=== PATIENT | female | born 1985 | race Caucasian/White ===

== ENCOUNTER 2017-04-15 11:07 | Inpatient (IN) | payer OTHER ==
[2017-04-15 12:18] VITALS: BMI 21.6
--- NOTE | 2017-04-15 14:37 | HP ---
COWS - Scale Resting Pulse: 1= [place] 81-100 Sweatin= Chills/Flushing Restless Observation: 3= Extraneous Movement Pupil Size: 2= Moderately Dilated Bone or Joint Aches: 4=Acute Joint/Muscle Pain Runny Nose/ Eye Tearin= Nasal Congestion GI Upset > 30mins: 1= Stomach Cramp Tremor Observation: 1= Tremor [place], Not Seen Yawning Observation: 0= None Anxiety or Irritability: 2=Irritable/Anxious Goose Flesh Skin: 0=Smooth Skin COWS Score: 16 CIWA Score - CIWA Score Nausea/Vomitin Muscle Tremors: 3 Anxiety: 4-Mod. Anxious/Guarded Agitation: 4-Moderately Restless Paroxysmal Sweats: 1-Minimal Palms Moist Orientation: 0-Oriented Tacttile Disturbances: 3-Moderate Itch/Numb/Burn Auditory Disturbances: 0-None Visual Disturbances: 0-None Headache: 0-None Present CIWA-Ar Total Score: 17 Admission ROS BHS - HPI Chief Complaint: WITHDRAWAL SX Allergies/Adverse Reactions: Allergies Allergy/AdvReac Type Severity Reaction Status Date / Time No Known Allergies Allergy Verified 04/15/17 12:23 History of Present Illness: 31 Y/O FEMALE WITH A HX OF ALCOHOL AND HEROIN DEPENDENCE SEEKING DETOX [place]. Exam Limitations: No Limitations - Ebola screening Have you traveled outside of the country in the last 21 days: No Have you had contact with anyone from an Ebola affected area: No Have you been sick,other than usual withdrawal symptoms: No Do you have a fever: No - Review of Systems Constitutional: Chills, Loss of Appetite, Night Sweats, Changes in sleep, Unintentional Wgt. Loss EENT: reports: Blurred Vision (WEARS CONTACTS) Respiratory: reports: No Symptoms reported Cardiac: reports: No Symptoms Reported GI: reports: Constipated (OIC), Diarrhea, Nausea, Poor Appetite, Poor Fluid Intake, Vomiting : reports: No Symptoms Reported Musculoskeletal: reports: Back Pain, Joint Pain, Muscle Pain Integumentary: reports: Bruising (IVD INJ SITES) Neuro: reports: Headache, Numbness (RIGHT HAND), Tremors, Unsteady Gait Endocrine: reports: No Symptoms Reported Hematology: reports: No Symptoms Reported Psychiatric: reports: Orientated x3, Anxious, Depressed Other Systems: Reviewed and Negative Patient History - Patient Medical History Hx Anemia: No Hx Asthma: No Hx Chronic Obstructive Pulmonary Disease (COPD): No Hx Cancer: No Hx Cardiac Disorders: No Hx Congestive Heart Failure: No Hx Hypertension: No Hx Hypercholesterolemia: No Hx Pacemaker: No HX Cerebrovascular Accident: No Hx Seizures: No Hx Dementia: No Hx Diabetes: No Hx Gastrointestinal Disorders: No Hx Liver Disease: No Hx Genitourinary Disorders: No Hx Sexually Transmitted Disorders: No (DENIES) Hx Renal Disease (ESRD): No Hx Thyroid Disease: No Hx Human Immunodeficiency Virus (HIV): No (NEGATIVE HX) Hx Hepatitis C: No Hx Depression: Yes (NOT CURRENTLY TAKING MEDS) Hx Suicide Attempt: Yes (Pt states she tried to overdose in 2016;DENIES CURRENT S/I) Hx Bipolar Disorder: No (HX PTSD) Hx Schizophrenia: No - Patient Surgical History Past Surgical History: No Hx Neurologic Surgery: No Hx Cataract Extraction: No Hx Cardiac Surgery: No Hx Lung Surgery: No Hx Breast Surgery: No Hx Breast Biopsy: No Hx Abdominal Surgery: No Hx Appendectomy: No Hx Cholecystectomy: No Hx Genitourinary Surgery: No Hx Orthopedic Surgery: No Anesthesia Reaction: No - PPD History Previous Implant?: Yes Documented Results: Negative w/o proof Implanted On Prior R Admission?: No Date: 12/31/14 Results: 0 mm PPD to be Administered?: Yes - Reproductive History Patient is a Female of Child Bearing Age (11 -55 yrs old): Yes Last Menstrual Period: 02/14/17 LMP comment: IRREGULAR Patient : No - Smoking Cessation Smoking history: Current every day smoker Have you smoked in the past 12 months: Yes Aproximately how many cigarettes per day: 6 Hx Chewing Tobacco Use: No Initiated information on smoking cessation: Yes 'Breaking Loose' booklet given: 04/15/17 - Substance & Tx. History Hx Alcohol Use: Yes (VODKA/GIN/BEER) Hx Substance Use: Yes (HEROIN/COCAINE) Substance Use Type: Alcohol, Cocaine, Heroin Hx Substance Use Treatment: Yes (LAST TX AT [facility] DETOX) - Substances Abused Heroin Route: Injection Frequency: Daily Amount used: 10-15 BAGS Age of first use: 28 Date of Last Use: 04/15/17 Cocaine Route: Inhalation Frequency: Daily Amount used: 1 gram Age of first use: 31 Date of Last Use: 04/14/17 Alcohol Route: Oral Frequency: 3-6 times per week Amount used: 1/2 pint Age of first use: 15 Date of Last Use: 04/13/17 Family Disease History - Family Disease History Family Disease History: Other: Father (ALCOHOLIC) Admission Physical Exam [facility] - Vital Signs Vital Signs: Vital Signs - 24 hr 04/15/17 11:52 Temperature 95.9 F L Pulse Rate 97 H Respiratory 20 Rate Blood Pressure 124/71 - Physical General Appearance: Yes: Moderate Distress, Irritable, Anxious HEENTM: Yes: EOMI, Normocephalic, ZAIRE, Pharynx Normal Respiratory: Yes: Chest Non-Tender, Lungs Clear, Normal Breath Sounds, No Respiratory Distress Neck: Yes: No masses,lesions,Nodules, Supple, Trachea in good position Breast: Yes: Breast Exam Deferred Cardiology: Yes: Regular Rhythm, Regular Rate, S1, S2 Abdominal: Yes: Normal Bowel Sounds, Non Tender, Flat Genitourinary: Yes: Other (N/C) Back: Yes: Within Normal Limits Musculoskeletal: Yes: full range of Motion, Gait Steady Extremities: Yes: Normal Range of Motion, Non-Tender Neurological: Yes: ledger poster II-XII NML intact, Fully Oriented, Alert, Motor Strength 5/5 Integumentary: Yes: Dry, Warm, Track [place] Lymphatic: Yes: Within Normal Limits - Diagnostic (1) Nicotine dependence Current Visit: Yes Status: Acute Qualifiers: Nicotine product type: cigarettes Substance use status: in withdrawal Qualified Code(s): F17.213 - Nicotine dependence, cigarettes, with withdrawal (2) Opioid dependence with withdrawal Current Visit: Yes Status: Acute (3) Alcohol dependence with uncomplicated withdrawal Current Visit: Yes Status: Acute (4) History of depression Current Visit: Yes Status: Chronic Cleared for Admission [facility] - Detox or Rehab [facility] Level of Care: Medically Managed Detox Regimen/Protocol: Methadone/Librium [facility] Breath Alcohol Content Breath Alcohol Content: 0 Urine Pregancy Test - Result Urine Test Results: Negative- NO Line Present Urine Drug Screen - Results Drug Screen Negative: No Urine Drug Screen Results: SAE-Cocaine, OPI-Opiates, TCA-Tricyclic Antidepress
[2017-04-15] MEDS ORDERED: ACETAMINOPHEN 325 MG TABLET (FP) PO PRN (14:56)
[2017-04-15] MEDS ORDERED: guaiFENesin/D-METHORPHAN HB 10 ML UNIT-DOSE CUPS PO PRN (14:56)
[2017-04-15] MEDS ORDERED: MAG HYDROX/AL HYDROX/SIMETH 30 ML UNIT-DOSE CUP PO PRN (14:56)
[2017-04-15] MEDS ORDERED: NICOTINE POLACRILEX 2 MG GUM BC PRN (14:56)
[2017-04-15] MEDS ORDERED: LOPERAMIDE HCL 2 MG CAPSULE PO PRN (14:56)
[2017-04-15] MEDS ORDERED: MENTHOL/PHENOL 1 EACH UD MM PRN (14:56)
[2017-04-15] MEDS ORDERED: P-EPHED 60MG/TRIPROLIDI 2.5MG TABLET PO PRN (14:56)
[2017-04-15] MEDS ORDERED: MAGNESIUM HYDROX 2400MG/30ML ORAL SUSPENSION 30 ML CUP PO PRN (14:56)
[2017-04-15] MEDS ORDERED: chlordiazePOXIDE HCL 25 MG CAPSULE PO PRN (14:56)
[2017-04-15] MEDS ORDERED: MAGNESIUM CITRATE 300 ML BOTTLE PO PRN (14:56)
[2017-04-15] MEDS ORDERED: METHADONE HCL 10 MG TABLET (FOR DETOX USE ONLY) PO ONE ×2 (15:15→23:00)
[2017-04-15] MEDS ORDERED: chlordiazePOXIDE HCL 25 MG CAPSULE PO ONE (15:15)
[2017-04-15] MEDS: NICOTINE 14 MG/24 HOURS TOPICAL PATCH TD SCH (15:25)
[2017-04-15] MEDS: chlordiazePOXIDE HCL 25 MG CAPSULE PO SCH ×2 (17:29→22:14)
[2017-04-15] MEDS: THIAMINE HCL 100 MG TABLET (FP) PO SCH (22:14)
[2017-04-15 22:31] LABS: MCHC 33.3 g/dl (32.0-36.0); MEAN CELL VOLUME 87.1 fl (80-96); MEAN PLT VOLUME 8.1 fl (7.5-11.1); PLATELET COUNT 262 K/MM3 (134-434); RDW 16.4 % (11.6-15.6); WHITE BLOOD COUNT 5.1 K/mm3 (4.0-10.0)
[2017-04-15 22:38] LABS: ALBUMIN 3.9 g/dl (3.4-5.0); ALK PHOS 97 U/L (45-117); ANION GAP 8 (8-16); BILIRUBIN,TOTAL 0.1 mg/dL (0.2-1.0); CALCIUM 9.1 mg/dL (8.5-10.1); CO2 30 mmol/L (21-32); CREATININE 0.9 mg/dL (0.55-1.02); GLUCOSE,RANDOM 82 mg/dL (74-106); SGOT/AST 16 U/L (15-37); SGPT/ALT 17 U/L (12-78)
[2017-04-15 23:01] LABS: URINE APPEARANCE SLCLOUDY; URINE BILIRUBIN NEGATIVE (NEGATIVE); URINE BLOOD NEGATIVE (NEGATIVE); URINE COLOR YELLOW; URINE GLUCOSE (UA) NEGATIVE (NEGATIVE); URINE KETONE NEGATIVE (NEGATIVE); URINE NITRITE NEGATIVE (NEGATIVE); URINE PROTEIN NEGATIVE (NEGATIVE)
[2017-04-16 02:49] LABS: HIV 1 & 2 AB NEGATIVE; HIV 1 AGp24 NEGATIVE
[2017-04-16] MEDS: chlordiazePOXIDE HCL 25 MG CAPSULE PO SCH ×4 (05:20→22:14)
--- NOTE | 2017-04-16 07:45 | CONSULT ---
[facility] Psychiatric Consult - Data Date of interview: 04/16/17 Admission source: [facility] Identifying data: This is 31 years old female with no psychiatric hospiotalization history intoxicated with: TCA, Op[ioids, Alcohol, Cocaine, Nicotine Substance Abuse History: Smoking history: Current every day smoker. Have you smoked in the past 12 months: Yes. Aproximately how many cigarettes per day: 6. Hx Chewing Tobacco Use: No. Initiated information on smoking cessation: Yes. 'Breaking Loose' booklet given: 04/15/17. - Substance & Tx. History. Hx Alcohol Use: Yes (VODKA/GIN/BEER). Hx Substance Use: Yes (HEROIN/COCAINE). Substance Use Type: Alcohol, Cocaine, Heroin. Hx Substance Use Treatment: Yes ( LAST TX AT [facility] DETOX). - Substances Abused. Heroin. Route: Injection. Frequency: Daily. Amount used: 10-15 BAGS. Age of first use: 28. Date of Last Use: 04/15/17. Cocaine. Route: Inhalation. Frequency: Daily. Amount used: 1 gram. Age of first use: 31. Date of Last Use: 04/14/17. Alcohol. Route: Oral. Frequency: 3-6 times per week. Amount used: 1/2 pint. Age of first use: 15. Date of Last Use: 04/13/17 Medical History: Denies msignificant medical problems Psychiatric History: Patoent reports history of depression, PTSD, denies suisidal history, reportsno medications taking prior to admission Physical/Sexual Abuse/Trauma History: Denies, unclear Additional Comment: Observation. Detox Unit Care Protocol Mental Status Exam - Mental Status Exam Alert and Oriented to: Person Cognitive Function: Fair Mood: Sad Affect: Flat Patient Behavior: Sedated Speech Pattern: Delayed Voice Loudness: Mildly Soft/Quiet Thought Process: Circumstantial Thought Disorder: Being Controlled Hallucinations: Denies Suicidal Ideation: Denies Homicidal Ideation: Denies Insight/Judgement: Fair Sleep: Difficulty falling asleep Appetite: Fair Muscle strength/Tone: Normal Gait/Station: Normal Additional Comments: Observation. Detox Unit Care Protocol Psychiatric Findings - Problem List ([place] 1, 2,3) (1) Alcohol dependence with uncomplicated withdrawal Current Visit: Yes Status: Acute (2) Nicotine dependence Current Visit: Yes Status: Acute Qualifiers: Nicotine product type: cigarettes Substance use status: in withdrawal Qualified Code(s): F17.213 - Nicotine dependence, cigarettes, with withdrawal (3) Opioid dependence with withdrawal Current Visit: Yes Status: Acute (4) History of depression Current Visit: Yes Status: Chronic (5) PTSD (post-traumatic stress disorder) Current Visit: No Status: Acute (6) Benzodiazepine dependence Current Visit: No Status: Chronic (7) Substance induced mood disorder Current Visit: No Status: Chronic - Initial Treatment Plan Initial Treatment Plan: Observation. Detox Unit Care Protocol
[2017-04-16] MEDS ORDERED: METHADONE HCL 10 MG TABLET (FOR DETOX USE ONLY) PO SCH (10:00)
[2017-04-16] MEDS: PRENATAL VITAMINS W/ FOLIC ACID TABLET (FP) PO SCH (10:10)
[2017-04-16] MEDS: NICOTINE 14 MG/24 HOURS TOPICAL PATCH TD SCH (10:12)
[2017-04-16 11:42] LABS: URINE LEUK ESTERASE Negative (NEGATIVE)
--- NOTE | 2017-04-16 12:49 | PN ---
S CIWA - CIWA Score Nausea/Vomitin-No Nausea/No Vomiting Muscle Tremors: 4-Moderate,w/Arms Extend Anxiety: 3 Agitation: 3 Paroxysmal Sweats: 3 Orientation: 0-Oriented Tacttile Disturbances: 0-None Auditory Disturbances: 0-None Visual Disturbances: 0-None Headache: 0-None Present CIWA-Ar Total Score: 13 BHS COWS - Scale Resting Pulse: 1= [place] 81-100 Sweatin=Flushed/Facial Moisture Restless Observation: 1= Difficult to Sit Still Pupil Size: 0= Normal to Room Light Bone or Joint Aches: 2= Severe Diffuse Aches Runny Nose/ Eye Tearin= Runny Nose/Eyes GI Upset > 30mins: 0= None Tremor Observation of Outstretched Hands: 2= Slight Tremor Visible Yawning Observation: 2= >3x During Session Anxiety or Irritability: 2=Irritable/Anxious Goose Flesh Skin: 0=Smooth Skin COWS Score: 14 S Progress Note (SOAP) Subjective: hot/cold sweats shakes interrupted sleep agitation sweats Objective: 04/16/17 12:49 Vital Signs Temperature 96 F L 04/16/17 09:31 Pulse Rate 97 H 04/16/17 09:31 Respiratory Rate 18 04/16/17 09:31 Blood Pressure 117/93 04/16/17 09:31 O2 Sat by Pulse Oximetry (%) Laboratory Tests 04/15/17 04/15/17 04/15/17 13:40 15:30 15:30 WBC 5.1 RBC 4.12 Hgb 12.0 Hct 35.9 MCV 87.1 MCH 29.0 MCHC 33.3 RDW 16.4 H D Plt Count 262 MPV 8.1 D Sodium 145 Potassium 4.3 Chloride 107 Carbon Dioxide 30 Anion Gap 8 BUN 16 Creatinine 0.9 D Creat Clearance w eGFR > 60 Random Glucose 82 Calcium 9.1 Total Bilirubin 0.1 L D AST 16 D ALT 17 Alkaline Phosphatase 97 D Total Protein 7.0 Albumin 3.9 Urine Color Urine Appearance Urine pH Ur Specific [place] Urine Protein Urine Glucose (UA) Urine Ketones Urine Blood Urine Nitrite Urine Bilirubin Urine Urobilinogen Ur Leukocyte Esterase RPR Titer HIV 1&2 Antibody Screen Negative HIV P24 Antigen Negative 04/15/17 04/15/17 15:30 15:50 WBC RBC Hgb Hct MCV MCH MCHC RDW Plt Count MPV Sodium Potassium Chloride Carbon Dioxide Anion Gap BUN Creatinine Creat Clearance w eGFR Random Glucose Calcium Total Bilirubin AST ALT Alkaline Phosphatase Total Protein Albumin Urine Color Yellow Urine Appearance Slcloudy Urine pH 6.0 Ur Specific [place] 1.026 Urine Protein Negative Urine Glucose (UA) Negative Urine Ketones Negative Urine Blood Negative Urine Nitrite Negative Urine Bilirubin Negative Urine Urobilinogen 2.0 H Ur Leukocyte Esterase Negative RPR Titer Nonreactive HIV 1&2 Antibody Screen HIV P24 Antigen [id number] ambulating no acute distress Assessment: 04/16/17 12:49 withdrawal sx Plan: continue detox increase fluids
--- NOTE | 2017-04-16 13:08 | EKG ---
Test Reason : Blood Pressure : / mmHG Vent. Rate : 080 BPM Atrial Rate : 080 BPM P-R Int : 146 ms QRS Dur : 084 ms QT Int : 362 ms P-R-T Axes : 000 -06 019 degrees QTc Int : 417 ms NORMAL SINUS RHYTHM NORMAL ECG NO PREVIOUS ECGS AVAILABLE Confirmed by CARMEN MARINELLI MD ([id number]) on 04/16/2017 1:07:35 PM Referred By: MILAD GASPAR Confirmed By:CARMEN MARINELLI MD
[2017-04-16] MEDS: hydrOXYzine PAMOATE 25 MG CAPSULE (FP) PO PRN (17:38)
[2017-04-16] MEDS: THIAMINE HCL 100 MG TABLET (FP) PO SCH (22:14)
[2017-04-17] MEDS: chlordiazePOXIDE HCL 25 MG CAPSULE PO SCH ×2 (06:14→10:40)
[2017-04-17] MEDS: hydrOXYzine PAMOATE 25 MG CAPSULE (FP) PO PRN ×3 (09:00→18:40)
[2017-04-17] MEDS: PRENATAL VITAMINS W/ FOLIC ACID TABLET (FP) PO SCH (10:40)
[2017-04-17] MEDS: METHADONE HCL 5 MG TABLET (FOR DETOX USE ONLY) PO SCH (10:41)
[2017-04-17] MEDS: NICOTINE 14 MG/24 HOURS TOPICAL PATCH TD SCH (10:42)
--- NOTE | 2017-04-17 13:18 | PN ---
S CIWA - CIWA Score Nausea/Vomitin Muscle Tremors: 3 Anxiety: 3 Agitation: 3 Paroxysmal Sweats: 3 Orientation: 0-Oriented Tacttile Disturbances: 0-None Auditory Disturbances: 0-None Visual Disturbances: 0-None Headache: 0-None Present CIWA-Ar Total Score: 15 BHS COWS - Scale Resting Pulse: 1= [place] 81-100 Sweatin= Chills/Flushing Restless Observation: 1= Difficult to Sit Still Pupil Size: 1= Pupils >than Normal Bone or Joint Aches: 1= Mild Discomfort Runny Nose/ Eye Tearin= Nasal Congestion GI Upset > 30mins: 2= Nausea/Diarrhea Tremor Observation of Outstretched Hands: 2= Slight Tremor Visible Yawning Observation: 1= 1-2x During Session Anxiety or Irritability: 2=Irritable/Anxious Goose Flesh Skin: 3=Piloerection COWS Score: 16 S Progress Note (SOAP) Subjective: nausa, sweats, interrupted sleep, axiety, tremors, Objective: 04/17/17 13:17 Vital Signs - 24 hr 04/16/17 04/16/17 04/16/17 14:51 17:20 21:56 Temperature 98.7 F 98.1 F 98.1 F Pulse Rate 18 L 71 83 Respiratory 96 H 18 20 Rate Blood Pressure 120/61 93/62 103/75 04/17/17 04/17/17 04/17/17 00:30 03:30 06:40 Temperature 97.3 F L Pulse Rate 56 L Respiratory 18 18 16 Rate Blood Pressure 97/60 04/17/17 10:04 Temperature 97 F L Pulse Rate 82 Respiratory 16 Rate Blood Pressure 107/71 Laboratory Tests 04/15/17 04/15/17 04/15/17 13:40 15:30 15:30 WBC 5.1 RBC 4.12 Hgb 12.0 Hct 35.9 MCV 87.1 MCH 29.0 MCHC 33.3 RDW 16.4 H D Plt Count 262 MPV 8.1 D Sodium 145 Potassium 4.3 Chloride 107 Carbon Dioxide 30 Anion Gap 8 BUN 16 Creatinine 0.9 D Creat Clearance w eGFR > 60 Random Glucose 82 Calcium 9.1 Total Bilirubin 0.1 L D AST 16 D ALT 17 Alkaline Phosphatase 97 D Total Protein 7.0 Albumin 3.9 Urine Color Urine Appearance Urine pH Ur Specific [place] Urine Protein Urine Glucose (UA) Urine Ketones Urine Blood Urine Nitrite Urine Bilirubin Urine Urobilinogen Ur Leukocyte Esterase RPR Titer HIV 1&2 Antibody Screen Negative HIV P24 Antigen Negative 04/15/17 04/15/17 15:30 15:50 WBC RBC Hgb Hct MCV MCH MCHC RDW Plt Count MPV Sodium Potassium Chloride Carbon Dioxide Anion Gap BUN Creatinine Creat Clearance w eGFR Random Glucose Calcium Total Bilirubin AST ALT Alkaline Phosphatase Total Protein Albumin Urine Color Yellow Urine Appearance Slcloudy Urine pH 6.0 Ur Specific [place] 1.026 Urine Protein Negative Urine Glucose (UA) Negative Urine Ketones Negative Urine Blood Negative Urine Nitrite Negative Urine Bilirubin Negative Urine Urobilinogen 2.0 H Ur Leukocyte Esterase Negative RPR Titer Nonreactive HIV 1&2 Antibody Screen HIV P24 Antigen Assessment: 04/17/17 13:17 withdrawal sx, cont detox, fluids, encourage ambualtion
[2017-04-17] MEDS: CYCLOBENZAPRINE HCL 10 MG TABLET (FP) PO PRN ×2 (13:39→22:08)
[2017-04-17] MEDS: chlordiazePOXIDE 5 MG CAPSULE PO SCH ×2 (17:09→22:08)
[2017-04-17] MEDS: THIAMINE HCL 100 MG TABLET (FP) PO SCH (22:08)
[2017-04-18] MEDS: chlordiazePOXIDE 5 MG CAPSULE PO SCH ×2 (05:15→10:27)
[2017-04-18] MEDS: CYCLOBENZAPRINE HCL 10 MG TABLET (FP) PO PRN ×3 (05:17→22:35)
[2017-04-18] MEDS: hydrOXYzine PAMOATE 25 MG CAPSULE (FP) PO PRN ×2 (09:10→15:09)
[2017-04-18] MEDS: METHADONE HCL 5 MG TABLET (FOR DETOX USE ONLY) PO SCH (10:26)
[2017-04-18] MEDS: PRENATAL VITAMINS W/ FOLIC ACID TABLET (FP) PO SCH (10:26)
[2017-04-18] MEDS: NICOTINE 14 MG/24 HOURS TOPICAL PATCH TD SCH (10:32)
--- NOTE | 2017-04-18 14:47 | PN ---
BHS Progress Note (SOAP) Subjective: Sweating,interrupted sleep,restless Objective: 04/18/17 14:46 Vital Signs - 8 hr 04/18/17 04/18/17 10:00 14:36 Temperature 98.2 F 98.4 F Pulse Rate 89 93 H Respiratory 18 18 Rate Blood Pressure 121/72 92/56 Laboratory Tests 04/15/17 04/15/17 04/15/17 13:40 15:30 15:30 WBC 5.1 RBC 4.12 Hgb 12.0 Hct 35.9 MCV 87.1 MCH 29.0 MCHC 33.3 RDW 16.4 H D Plt Count 262 MPV 8.1 D Sodium 145 Potassium 4.3 Chloride 107 Carbon Dioxide 30 Anion Gap 8 BUN 16 Creatinine 0.9 D Creat Clearance w eGFR > 60 Random Glucose 82 Calcium 9.1 Total Bilirubin 0.1 L D AST 16 D ALT 17 Alkaline Phosphatase 97 D Total Protein 7.0 Albumin 3.9 Urine Color Urine Appearance Urine pH Ur Specific [place] Urine Protein Urine Glucose (UA) Urine Ketones Urine Blood Urine Nitrite Urine Bilirubin Urine Urobilinogen Ur Leukocyte Esterase RPR Titer HIV 1&2 Antibody Screen Negative HIV P24 Antigen Negative 04/15/17 04/15/17 15:30 15:50 WBC RBC Hgb Hct MCV MCH MCHC RDW Plt Count MPV Sodium Potassium Chloride Carbon Dioxide Anion Gap BUN Creatinine Creat Clearance w eGFR Random Glucose Calcium Total Bilirubin AST ALT Alkaline Phosphatase Total Protein Albumin Urine Color Yellow Urine Appearance Slcloudy Urine pH 6.0 Ur Specific [place] 1.026 Urine Protein Negative Urine Glucose (UA) Negative Urine Ketones Negative Urine Blood Negative Urine Nitrite Negative Urine Bilirubin Negative Urine Urobilinogen 2.0 H Ur Leukocyte Esterase Negative RPR Titer Nonreactive HIV 1&2 Antibody Screen HIV P24 Antigen labs noted Assessment: 04/18/17 14:46 withdrawal sx. Plan: continue detox
[2017-04-18] MEDS: IBUPROFEN 400 MG TABLET (FP) PO PRN ×2 (15:09→22:35)
--- NOTE | 2017-04-18 16:31 | PN ---
Psychiatric Progress Note Vital Signs: Vital Signs Period Temp Pulse Resp BP Sys/Starks Pulse Ox Last 24 Hr 97.3 F-98.8 F 77-99 16-20 92-125/56-72 Date of Session: 04/18/17 Chief Complaint:: " I don't sleep at night.I need some medication." HPI: Day 4 of detoxification treatment.Seen by Dr Rutherford on 04/16/17.Benign hospital course except for complaint of insomnia. ROS: Unremarkable. Current Medications: Active Medications Generic Name Dose Route Start Last Admin Trade Name Freq PRN Reason Stop Dose Admin Acetaminophen 650 mg 04/15/17 14:56 04/17/17 18:38 Tylenol - PO 650 mg Q4H PRN Administration FEVER OR PAIN Al Hydroxide/Mg Hydroxide 30 ml 04/15/17 14:56 Mylanta Oral Suspension - PO Q6H PRN DYSPEPSIA Chlordiazepoxide HCl 10 mg 04/18/17 17:00 Librium - PO 04/19/17 11:01 [id number] BARNEY Cyclobenzaprine HCl 10 mg 04/17/17 13:12 04/18/17 14:23 Flexeril - PO 10 mg TID PRN Administration MUSCLE SPASMS Eucalyptus/Menthol/Phenol/Sorbitol 1 each 04/15/17 14:56 Cepastat Lozenge - MM Q4H PRN SORE THROAT Guaifenesin 10 ml 04/15/17 14:56 Robitussin Dm - PO Q6H PRN COUGH Hydroxyzine Pamoate 25 mg 04/15/17 14:56 04/18/17 15:09 Vistaril - PO 25 mg Q4H PRN Administration AGITATION Ibuprofen 400 mg 04/15/17 14:56 04/18/17 15:09 Motrin - PO 400 mg Q6H PRN Administration SEVERE PAIN Loperamide HCl 4 mg 04/15/17 14:56 Imodium - PO Q6H PRN DIARRHEA Magnesium Citrate 300 ml 04/15/17 14:56 Citroma - PO Q48H PRN CONSTIPATION Magnesium Hydroxide 30 ml 04/15/17 14:56 Milk Of Magnesia - PO DAILY PRN CONSTIPATION Methadone HCl 5 mg 04/20/17 06:00 Dolophine - PO 04/20/17 06:01 DAILY@0600 BARNEY Methadone HCl 10 mg 04/19/17 10:00 Dolophine - PO 04/19/17 10:01 DAILY BARNEY Nicotine 14 mg 04/15/17 15:15 04/18/17 10:32 Nicoderm Patch - TD Not Given DAILY BARNEY Nicotine Polacrilex 2 mg 04/15/17 14:56 Nicorette Gum - BC Q2H PRN NICOTINE REPLACEMENT RX Multivit/Folic Acid/Iron 1 tab 04/16/17 10:00 04/18/17 10:26 Vitamins (Sjr) - PO 1 tab DAILY BARNEY Administration Pseudoephedrine/Triprolidine 1 combo 04/15/17 14:56 04/17/17 10:42 Actifed - PO 1 combo TID PRN Administration NASAL CONGESTION Thiamine HCl 100 mg 04/15/17 22:00 04/17/17 22:08 Vitamin B1 - PO 100 mg HS BARNEY Administration Zolpidem Tartrate 10 mg 04/18/17 22:00 Ambien - PO HS PRN INSOMNIA Medication(s) Change(s): Ambien 10 mg po hs prn is added to regimen.Patient is made aware of potential for parasomnias.She agrees with this careplan. Current Side Effect: No Lab tests ordered: No Lab tests reviewed: Yes Provider note:: Asked to see this patient who requested to " talk to a psychiatrist." Already evaluated by Dr Rutherford (note is appreciated).Chart reviewed.Patient is interviewed.Doing fine.Patient is now reporting past OPD care for mood disorder that was addressed with seroquel 600 mg/day + prazosin.NO medication taken for " more than eight months." Ms Mc declares total disconnection with psychiatric OPD care.No history of psychiatric hospitalizations or suicide attempts.Stable mental status.Sleep hygiene discussed with the patient.She is instructed to contact her outpatient psychiatrist for OPD care. Total face to face time:: 25 Mental Status Exam - Mental Status Exam Alert and Oriented to: Time, Place, Person Cognitive Function: Good Patient Appearance: Well Groomed (thin habitus) Mood: Hopeful, Euthymic Affect: Appropriate, Normal Range Patient Behavior: Appropriate, Cooperative Speech Pattern: Clear Voice Loudness: Normal Thought Process: Intact, Goal Oriented Thought Disorder: Not Present Hallucinations: Denies Suicidal Ideation: Denies Homicidal Ideation: Denies Insight/Judgement: Fair Sleep: Poorly, Difficulty falling asleep Appetite: Good Muscle strength/Tone: Normal Gait/Station: Normal Psychiatric Treatment Plan - Problem List (1) Alcohol dependence with uncomplicated withdrawal Current Visit: Yes (2) Opioid dependence with withdrawal Current Visit: Yes (3) Benzodiazepine dependence Current Visit: Yes (4) Nicotine dependence Current Visit: Yes Qualifiers: Nicotine product type: cigarettes Substance use status: in withdrawal Qualified Code(s): F17.213 - Nicotine dependence, cigarettes, with withdrawal (5) Substance induced mood disorder Current Visit: Yes (6) Insomnia Current Visit: Yes
[2017-04-18] MEDS: chlordiazePOXIDE HCL 10 MG CAPSULE PO SCH ×2 (17:29→22:35)
[2017-04-18] MEDS ORDERED: ZOLPIDEM TARTRATE 10 MG TABLET (PARK CARE ONLY) PO PRN (22:00)
[2017-04-18] MEDS: THIAMINE HCL 100 MG TABLET (FP) PO SCH (22:35)
[2017-04-19] MEDS: chlordiazePOXIDE HCL 10 MG CAPSULE PO SCH ×2 (05:41→10:34)
[2017-04-19] MEDS: CYCLOBENZAPRINE HCL 10 MG TABLET (FP) PO PRN ×2 (05:42→11:42)
[2017-04-19 06:16] VITALS: BP 105/60; PULSE 70; TEMP 97.3
--- NOTE | 2017-04-19 09:51 | PN ---
BHS Progress Note (SOAP) Subjective: sweat insomnia feeling tired Objective: 04/19/17 09:50 Vital Signs Temperature 97.3 F L 04/19/17 06:15 Pulse Rate 70 04/19/17 06:15 Respiratory Rate 18 04/19/17 06:15 Blood Pressure 105/60 04/19/17 06:15 O2 Sat by Pulse Oximetry (%) lLaboratory Last Values WBC 5.1 K/mm3 (4.0-10.0) 04/15/17 15:30 RBC 4.12 M/mm3 (3.60-5.2) 04/15/17 15:30 Hgb 12.0 GM/dL (10.7-15.3) 04/15/17 15:30 Hct 35.9 % (32.4-45.2) 04/15/17 15:30 MCV 87.1 fl (80-96) 04/15/17 15:30 MCH 29.0 pg (25.7-33.7) 04/15/17 15:30 MCHC 33.3 g/dl (32.0-36.0) 04/15/17 15:30 RDW 16.4 % (11.6-15.6) H D 04/15/17 15:30 Plt Count 262 K/MM3 (134-434) 04/15/17 15:30 MPV 8.1 fl (7.5-11.1) D 04/15/17 15:30 Sodium 145 mmol/L (136-145) 04/15/17 15:30 Potassium 4.3 mmol/L (3.5-5.1) 04/15/17 15:30 Chloride 107 mmol/L (98-107) 04/15/17 15:30 Carbon Dioxide 30 mmol/L (21-32) 04/15/17 15:30 Anion Gap 8 (8-16) 04/15/17 15:30 BUN 16 mg/dL (7-18) 04/15/17 15:30 Creatinine 0.9 mg/dL (0.55-1.02) D 04/15/17 15:30 Creat Clearance w eGFR > 60 (>60) 04/15/17 15:30 Random Glucose 82 mg/dL (74-106) 04/15/17 15:30 Calcium 9.1 mg/dL (8.5-10.1) 04/15/17 15:30 Total Bilirubin 0.1 mg/dL (0.2-1.0) L D 04/15/17 15:30 AST 16 U/L (15-37) D 04/15/17 15:30 ALT 17 U/L (12-78) 04/15/17 15:30 Alkaline Phosphatase 97 U/L (45-117) D 04/15/17 15:30 Total Protein 7.0 g/dl (6.4-8.2) 04/15/17 15:30 Albumin 3.9 g/dl (3.4-5.0) 04/15/17 15:30 Urine Color Yellow 04/15/17 15:50 Urine Appearance Slcloudy 04/15/17 15:50 Urine pH 6.0 (5.0-8.0) 04/15/17 15:50 Ur Specific [place] 1.026 (1.001-1.035) 04/15/17 15:50 Urine Protein Negative (NEGATIVE) 04/15/17 15:50 Urine Glucose (UA) Negative (NEGATIVE) 04/15/17 15:50 Urine Ketones Negative (NEGATIVE) 04/15/17 15:50 Urine Blood Negative (NEGATIVE) 04/15/17 15:50 Urine Nitrite Negative (NEGATIVE) 04/15/17 15:50 Urine Bilirubin Negative (NEGATIVE) 04/15/17 15:50 Urine Urobilinogen 2.0 mg/dL (0.2-1.0) H 04/15/17 15:50 Ur Leukocyte Esterase Negative (NEGATIVE) 04/15/17 15:50 RPR Titer Nonreactive (NONREACTIVE) 04/15/17 15:30 HIV 1&2 Antibody Screen Negative 04/15/17 13:40 HIV P24 Antigen Negative 04/15/17 13:40 lab noted Assessment: 04/19/17 09:50 withdrawal sx Plan: continue detox
[2017-04-19] MEDS ORDERED: METHADONE HCL 10 MG TABLET (FOR DETOX USE ONLY) PO SCH (10:00)
[2017-04-19] MEDS: PRENATAL VITAMINS W/ FOLIC ACID TABLET (FP) PO SCH (10:34)
[2017-04-19] MEDS: NICOTINE 14 MG/24 HOURS TOPICAL PATCH TD SCH (10:35)
[2017-04-19] MEDS: hydrOXYzine PAMOATE 25 MG CAPSULE (FP) PO PRN (11:28)
--- NOTE | 2017-04-19 13:55 | DS ---
[facility] Detox Discharge Summary Admission Date: 04/15/17 Discharge Date: 04/19/17 - History Present History: Alcohol Dependence, Opioid Dependence Pertinent Past History: patient reports feeling anxious none pharmacotherpeutic measurement without effect the nurse offers prn medications patient insists to leave the facility "I want to see my family" Patient refuses to discuss aftercare. - Physical Exam Results Vital Signs: Vital Signs Temperature 97.3 F L 04/19/17 06:15 Pulse Rate 70 04/19/17 06:15 Respiratory Rate 18 04/19/17 06:15 Blood Pressure 105/60 04/19/17 06:15 O2 Sat by Pulse Oximetry (%) Pertinent Admission Physical Exam Findings: withdrawal sx Laboratory Last Values WBC 5.1 K/mm3 (4.0-10.0) 04/15/17 15:30 RBC 4.12 M/mm3 (3.60-5.2) 04/15/17 15:30 Hgb 12.0 GM/dL (10.7-15.3) 04/15/17 15:30 Hct 35.9 % (32.4-45.2) 04/15/17 15:30 MCV 87.1 fl (80-96) 04/15/17 15:30 MCH 29.0 pg (25.7-33.7) 04/15/17 15:30 MCHC 33.3 g/dl (32.0-36.0) 04/15/17 15:30 RDW 16.4 % (11.6-15.6) H D 04/15/17 15:30 Plt Count 262 K/MM3 (134-434) 04/15/17 15:30 MPV 8.1 fl (7.5-11.1) D 04/15/17 15:30 Sodium 145 mmol/L (136-145) 04/15/17 15:30 Potassium 4.3 mmol/L (3.5-5.1) 04/15/17 15:30 Chloride 107 mmol/L (98-107) 04/15/17 15:30 Carbon Dioxide 30 mmol/L (21-32) 04/15/17 15:30 Anion Gap 8 (8-16) 04/15/17 15:30 BUN 16 mg/dL (7-18) 04/15/17 15:30 Creatinine 0.9 mg/dL (0.55-1.02) D 04/15/17 15:30 Creat Clearance w eGFR > 60 (>60) 04/15/17 15:30 Random Glucose 82 mg/dL (74-106) 04/15/17 15:30 Calcium 9.1 mg/dL (8.5-10.1) 04/15/17 15:30 Total Bilirubin 0.1 mg/dL (0.2-1.0) L D 04/15/17 15:30 AST 16 U/L (15-37) D 04/15/17 15:30 ALT 17 U/L (12-78) 04/15/17 15:30 Alkaline Phosphatase 97 U/L (45-117) D 04/15/17 15:30 Total Protein 7.0 g/dl (6.4-8.2) 04/15/17 15:30 Albumin 3.9 g/dl (3.4-5.0) 04/15/17 15:30 Urine Color Yellow 04/15/17 15:50 Urine Appearance Slcloudy 04/15/17 15:50 Urine pH 6.0 (5.0-8.0) 04/15/17 15:50 Ur Specific [place] 1.026 (1.001-1.035) 04/15/17 15:50 Urine Protein Negative (NEGATIVE) 04/15/17 15:50 Urine Glucose (UA) Negative (NEGATIVE) 04/15/17 15:50 Urine Ketones Negative (NEGATIVE) 04/15/17 15:50 Urine Blood Negative (NEGATIVE) 04/15/17 15:50 Urine Nitrite Negative (NEGATIVE) 04/15/17 15:50 Urine Bilirubin Negative (NEGATIVE) 04/15/17 15:50 Urine Urobilinogen 2.0 mg/dL (0.2-1.0) H 04/15/17 15:50 Ur Leukocyte Esterase Negative (NEGATIVE) 04/15/17 15:50 RPR Titer Nonreactive (NONREACTIVE) 04/15/17 15:30 HIV 1&2 Antibody Screen Negative 04/15/17 13:40 HIV P24 Antigen Negative 04/15/17 13:40 lab noted - Treatment Hospital Course: Detox Protocol Followed, Responded well - Medication Discharge Medications: Ambulatory Orders NK [No Known Home Medication] 04/15/17 - Diagnosis (1) Alcohol dependence with uncomplicated withdrawal Status: Acute (2) Nicotine dependence Status: Acute Qualifiers: Nicotine product type: cigarettes Substance use status: in withdrawal Qualified Code(s): F17.213 - Nicotine dependence, cigarettes, with withdrawal (3) Opioid dependence with withdrawal Status: Acute (4) Sedative, hypnotic or anxiolytic dependence with withdrawal, uncomplicated Status: Acute - AMA Did Patient Leave Against Medical Advice: Yes
[2017-04-20] MEDS ORDERED: METHADONE HCL 5 MG TABLET (FOR DETOX USE ONLY) PO SCH (06:00)
== END 2017-04-19 12:04 | disposition left against medical advice (07) | DRG 770 ==
LOC: YASAS 11:07 → Y6N 13:19
PROVIDERS: ADMIT Internal Medicine; ATTEND Internal Medicine
PROC: HZ2ZZZZ Detoxification Services for Substance Abuse Treatment (ICD-10-PCS; principal; 2017-04-15)
DX: F11.23 Opioid dependence with withdrawal (principal); F13.230 Sedative, hypnotic or anxiolytic dependence with withdrawal, uncomplicated; F10.230 Alcohol dependence with withdrawal, uncomplicated; F17.213 Nicotine dependence, cigarettes, with withdrawal; F19.24 Other psychoactive substance dependence with psychoactive substance-induced mood disorder; F32.9 Major depressive disorder, single episode, unspecified; Z91.5 Personal history of self-harm
CPT/HCPCS: 36415; 80053; 81003; 85027; 86593; 87389; 93005; 93010

== ENCOUNTER 2017-05-29 10:28 | Inpatient (IN) | payer OTHER ==
[2017-05-29 12:04] VITALS: BMI 21.6
--- NOTE | 2017-05-29 15:27 | HP ---
COWS - Scale Resting Pulse: 1= [place] 81-100 Sweatin= Chills/Flushing Restless Observation: 3= Extraneous Movement Pupil Size: 2= Moderately Dilated Bone or Joint Aches: 4=Acute Joint/Muscle Pain Runny Nose/ Eye Tearin= Runny Nose/Eyes GI Upset > 30mins: 1= Stomach Cramp Tremor Observation: 2= Slight Tremor Visible Yawning Observation: 2= >3x During Session Anxiety or Irritability: 2=Irritable/Anxious Goose Flesh Skin: 0=Smooth Skin COWS Score: 20 CIWA Score - CIWA Score Nausea/Vomitin-No Nausea/No Vomiting Muscle Tremors: 4-Moderate,w/Arms Extend Anxiety: 4-Mod. Anxious/Guarded Agitation: 4-Moderately Restless Paroxysmal Sweats: 1-Minimal Palms Moist Orientation: 0-Oriented Tacttile Disturbances: 3-Moderate Itch/Numb/Burn Auditory Disturbances: 0-None Visual Disturbances: 0-None Headache: 2-Mild CIWA-Ar Total Score: 18 Admission ROS S - HPI Chief Complaint: WITHDRAWAL SX FROM ALCOHOL AND HEROIN. Allergies/Adverse Reactions: Allergies Allergy/AdvReac Type Severity Reaction Status Date / Time No Known Allergies Allergy Verified 04/15/17 12:23 History of Present Illness: 31 Y/O MALE WITH A HX OF HEROIN, ALCOHOL AND COCAINE DEPENDENCE SEEKING DETOX TX. PT HAS PREVIOUS TX EPISODES. Exam Limitations: No Limitations - Ebola screening Have you traveled outside of the country in the last 21 days: No (N) Have you had contact with anyone from an Ebola affected area: No Have you been sick,other than usual withdrawal symptoms: No Do you have a fever: No - Review of Systems Constitutional: Chills, Loss of Appetite, Night Sweats EENT: reports: Blurred Vision, Tearing, Nose Congestion, Dental Problems (TOOTH FILLINGS) Respiratory: reports: No Symptoms reported Cardiac: reports: No Symptoms Reported GI: reports: Constipated, Diarrhea, Nausea, Poor Fluid Intake, Vomiting : reports: No Symptoms Reported Musculoskeletal: reports: Back Pain, Joint Pain, Muscle Pain Integumentary: reports: Bruising (IVD INJ SITES ON BOTH FOREARMS) Neuro: reports: Headache, Dizziness Endocrine: reports: No Symptoms Reported Hematology: reports: No Symptoms Reported Psychiatric: reports: Orientated x3, Anxious, Depressed Other Systems: Reviewed and Negative Patient History - Patient Medical History Hx Anemia: No Hx Asthma: No Hx Chronic Obstructive Pulmonary Disease (COPD): No Hx Cancer: No Hx Cardiac Disorders: No Hx Congestive Heart Failure: No Hx Hypertension: No Hx Hypercholesterolemia: No Hx Pacemaker: No HX Cerebrovascular Accident: No Hx Seizures: No Hx Dementia: No Hx Diabetes: No Hx Gastrointestinal Disorders: No Hx Liver Disease: No Hx Genitourinary Disorders: No Hx Sexually Transmitted Disorders: No Hx Renal Disease (ESRD): No Hx Thyroid Disease: No Hx Human Immunodeficiency Virus (HIV): No (NEGATIVE HX) Hx Hepatitis C: No Hx Depression: Yes Hx Suicide Attempt: Yes (Pt states she tried to overdose in 2016;DENIES S/H IDEATIONS NOW.) Hx Bipolar Disorder: No (HX PTSD) Hx Schizophrenia: No - Patient Surgical History Past Surgical History: No Hx Neurologic Surgery: No Hx Cataract Extraction: No Hx Cardiac Surgery: No Hx Lung Surgery: No Hx Breast Surgery: No Hx Breast Biopsy: No Hx Abdominal Surgery: No Hx Appendectomy: No Hx Cholecystectomy: No Hx Genitourinary Surgery: No Hx Section: No Hx Orthopedic Surgery: No Hx Hysterectomy: No Anesthesia Reaction: No - PPD History Previous Implant?: Yes Documented Results: Negative w/proof Implanted On Prior [facility] Admission?: Yes Date: 04/17/17 Results: 0 mm PPD to be Administered?: No - Reproductive History Patient is a Female of Child Bearing Age (11 -55 yrs old): Yes Last Menstrual Period: 02/14/17 Patient : No - Smoking Cessation Smoking history: Current every day smoker Have you smoked in the past 12 months: Yes Aproximately how many cigarettes per day: 6 Hx Chewing Tobacco Use: No Initiated information on smoking cessation: Yes 'Breaking Loose' booklet given: 05/29/17 - Substance & Tx. History Hx Alcohol Use: Yes (VODKA/WHISKEY) Hx Substance Use: Yes Substance Use Type: Alcohol, Cocaine, Heroin Hx Substance Use Treatment: Yes (LAST TX AT [facility]-DETOX) - Substances Abused Heroin Route: Injection Frequency: Daily Amount used: 10-15 bags Age of first use: 27 Date of Last Use: 05/29/17 Alcohol Route: Oral Frequency: Daily Amount used: 1 pint whiskey and up Age of first use: 15 Date of Last Use: 05/28/17 Cocaine Route: Inhalation Frequency: Daily Amount used: $60-80 Age of first use: 31 Date of Last Use: 05/28/17 Family Disease History - Family Disease History Family Disease History: Other: Father (ALCOHOLIC) Admission Physical Exam [facility] - Vital Signs Vital Signs: Vital Signs - 24 hr 05/29/17 12:00 Temperature 97.1 F L Pulse Rate 90 Respiratory 18 Rate Blood Pressure 124/72 - Physical General Appearance: Yes: Moderate Distress, Irritable, Anxious HEENTM: Yes: EOMI, Normocephalic, ZAIRE, Pharynx Normal Respiratory: Yes: Chest Non-Tender, Lungs Clear, Normal Breath Sounds, No Respiratory Distress Neck: Yes: No masses,lesions,Nodules, Supple, Trachea in good position Breast: Yes: Breast Exam Deferred Cardiology: Yes: Regular Rhythm, Regular Rate, S1, S2 Abdominal: Yes: Normal Bowel Sounds, Non Tender, Flat, Soft Genitourinary: Yes: Other (N/C) Back: Yes: Within Normal Limits Musculoskeletal: Yes: full range of Motion, Gait Steady Extremities: Yes: Normal Range of Motion, Non-Tender Neurological: Yes: linter operator II-XII NML intact, Fully Oriented, Alert, Motor Strength 5/5 Integumentary: Yes: Dry, Warm, Track [place] (BOTH ARMS) Lymphatic: Yes: Within Normal Limits - Diagnostic (1) Alcohol dependence with uncomplicated withdrawal Current Visit: Yes Status: Acute (2) Cocaine dependence, uncomplicated Current Visit: Yes Status: Acute (3) Nicotine dependence Current Visit: Yes Status: Acute Qualifiers: Nicotine product type: cigarettes Substance use status: in withdrawal Qualified Code(s): F17.213 - Nicotine dependence, cigarettes, with withdrawal (4) Opioid dependence with withdrawal Current Visit: Yes Status: Acute Cleared for Admission [facility] - Detox or Rehab [facility] Level of Care: Medically Managed Detox Regimen/Protocol: Methadone/Librium [facility] Breath Alcohol Content Breath Alcohol Content: 0 Urine Pregancy Test - Result Urine Test Results: Negative- NO Line Present Urine Drug Screen - Results Drug Screen Negative: No Urine Drug Screen Results: SAE-Cocaine, OPI-Opiates
[2017-05-29] MEDS ORDERED: MENTHOL/PHENOL 1 EACH UD MM PRN (15:35)
[2017-05-29] MEDS ORDERED: MAGNESIUM HYDROX 2400MG/30ML ORAL SUSPENSION 30 ML CUP PO PRN (15:35)
[2017-05-29] MEDS ORDERED: MAGNESIUM CITRATE 300 ML BOTTLE PO PRN (15:35)
[2017-05-29] MEDS ORDERED: LOPERAMIDE HCL 2 MG CAPSULE PO PRN (15:35)
[2017-05-29] MEDS ORDERED: IBUPROFEN 400 MG TABLET (FP) PO PRN (15:35)
[2017-05-29] MEDS ORDERED: P-EPHED 60MG/TRIPROLIDI 2.5MG TABLET PO PRN (15:35)
[2017-05-29] MEDS ORDERED: guaiFENesin/D-METHORPHAN HB 10 ML UNIT-DOSE CUPS PO PRN (15:35)
[2017-05-29] MEDS ORDERED: MAG HYDROX/AL HYDROX/SIMETH 30 ML UNIT-DOSE CUP PO PRN (15:35)
[2017-05-29] MEDS ORDERED: NICOTINE POLACRILEX 2 MG GUM BUC PRN (15:35)
[2017-05-29] MEDS ORDERED: chlordiazePOXIDE HCL 25 MG CAPSULE PO ONE (15:52)
[2017-05-29] MEDS ORDERED: METHADONE HCL 10 MG TABLET (FOR DETOX USE ONLY) PO ONE ×2 (15:52→23:00)
[2017-05-29] MEDS: chlordiazePOXIDE HCL 25 MG CAPSULE PO SCH ×2 (17:55→22:31)
[2017-05-29] MEDS: NICOTINE 14 MG/24 HOURS TOPICAL PATCH TD SCH (18:25)
[2017-05-29] MEDS: THIAMINE HCL 100 MG TABLET (FP) PO SCH (22:31)
[2017-05-29 23:24] LABS: URINE APPEARANCE CLOUDY; URINE BILIRUBIN NEGATIVE (NEGATIVE); URINE BLOOD NEGATIVE (NEGATIVE); URINE COLOR AMBER; URINE GLUCOSE (UA) NEGATIVE (NEGATIVE); URINE KETONE 1+ (NEGATIVE); URINE NITRITE NEGATIVE (NEGATIVE); URINE PROTEIN NEGATIVE (NEGATIVE); URINE UROBILINOGEN 4.0 E.U/dl mg/dL (0.2-1.0)
[2017-05-29 23:48] LABS: URINE LEUK ESTERASE 2+ (NEGATIVE)
[2017-05-30 00:27] LABS: CALCIUM OXALATE CRYSTALS RARE /hpf (NONE SEEN); EPI CELLS MODERATE /HPF (FEW); URINE MUCUS FEW
[2017-05-30] MEDS: chlordiazePOXIDE HCL 25 MG CAPSULE PO PRN ×3 (03:09→19:51)
[2017-05-30] MEDS: chlordiazePOXIDE HCL 25 MG CAPSULE PO SCH ×4 (05:38→22:31)
[2017-05-30] MEDS: ACETAMINOPHEN 325 MG TABLET (FP) PO PRN ×2 (05:39→18:53)
[2017-05-30] MEDS ORDERED: METHADONE HCL 10 MG TABLET (FOR DETOX USE ONLY) PO SCH (10:00)
[2017-05-30] MEDS: PRENATAL VITAMINS W/ FOLIC ACID TABLET (FP) PO SCH (11:03)
[2017-05-30] MEDS: NICOTINE 14 MG/24 HOURS TOPICAL PATCH TD SCH (11:05)
--- NOTE | 2017-05-30 12:08 | PN ---
[facility] CIWA - CIWA Score Nausea/Vomitin Muscle Tremors: 3 Anxiety: 3 Agitation: 2 Paroxysmal Sweats: 1-Minimal Palms Moist Orientation: 0-Oriented Tacttile Disturbances: 1-Very Mild Itch/Numbness Auditory Disturbances: 1-Very Mild Visual Disturbances: 0-None Headache: 2-Mild CIWA-Ar Total Score: 16 [facility] COWS - Scale Resting Pulse: 0= [place] 80 or Below Sweatin= Chills/Flushing Restless Observation: 3= Extraneous Movement Pupil Size: 1= Pupils >than Normal Bone or Joint Aches: 2= Severe Diffuse Aches Runny Nose/ Eye Tearin= Runny Nose/Eyes GI Upset > 30mins: 2= Nausea/Diarrhea Tremor Observation of Outstretched Hands: 2= Slight Tremor Visible Yawning Observation: 1= 1-2x During Session Anxiety or Irritability: 2=Irritable/Anxious Goose Flesh Skin: 0=Smooth Skin COWS Score: 16 [facility] Progress Note (SOAP) Subjective: ALERT,IRRITABLE,ANXIOUS,INTERRUPTED SLEEP,TREMOR,PAIN IN THE BODY AND BACK Objective: 05/30/17 12:05 Vital Signs Temperature 97.9 F 05/30/17 10:27 Pulse Rate 62 05/30/17 10:27 Respiratory Rate 16 05/30/17 10:27 Blood Pressure 120/79 05/30/17 10:27 O2 Sat by Pulse Oximetry (%) EKG NSR,NORMAL ECG Laboratory Last Values Urine Color Camila 05/29/17 21:00 Urine Appearance Cloudy 05/29/17 21:00 Urine pH 6.0 (5.0-8.0) 05/29/17 21:00 Ur Specific [place] 1.015 (1.001-1.035) 05/29/17 21:00 Urine Protein Negative (NEGATIVE) 05/29/17 21:00 Urine Glucose (UA) Negative (NEGATIVE) 05/29/17 21:00 Urine Ketones 1+ (NEGATIVE) H 05/29/17 21:00 Urine Blood Negative (NEGATIVE) 05/29/17 21:00 Urine Nitrite Negative (NEGATIVE) 05/29/17 21:00 Urine Bilirubin Negative (NEGATIVE) 05/29/17 21:00 Urine Urobilinogen 4.0 e.u/dl mg/dL (0.2-1.0) H 05/29/17 21:00 Ur Leukocyte Esterase 2+ (NEGATIVE) H 05/29/17 21:00 Urine WBC (Auto) 33 /hpf (3-5) 05/29/17 21:00 Urine RBC (Auto) 15 /hpf (0-3) 05/29/17 21:00 Ur Epithelial Cells Moderate /HPF (FEW) 05/29/17 21:00 Calcium Oxalate Crystal Rare /hpf (NONE SEEN) 05/29/17 21:00 Urine Mucus Few 05/29/17 21:00 LABS PENDING Assessment: 05/30/17 12:07 WITHDRAWAL SYMPTOM Plan: CONTINUE DETOX,REPEAT UA R.O UTI,ENCOURAGE ORAL FLUID
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
[2017-05-30 16:22] LABS: HEMATOCRIT 32.4 % (32.4-45.2); HEMOGLOBIN 10.8 GM/dL (10.7-15.3); MCH 27.8 pg (25.7-33.7); MCHC 33.4 g/dl (32.0-36.0); MEAN CELL VOLUME 83.4 fl (80-96); MEAN PLT VOLUME 9.1 fl (7.5-11.1); PLATELET COUNT 210 K/MM3 (134-434); RBC 3.89 M/mm3 (3.60-5.2); RDW 14.9 % (11.6-15.6); WHITE BLOOD COUNT 4.3 K/mm3 (4.0-10.0)
[2017-05-30 16:38] LABS: ALBUMIN 2.9 g/dl (3.4-5.0); ANION GAP 10 (8-16); BLOOD UREA NITROGEN 13 mg/dL (7-18); CALCIUM 8.8 mg/dL (8.5-10.1); CHLORIDE 108 mmol/L (98-107); CO2 26 mmol/L (21-32); GLUCOSE,RANDOM 145 mg/dL (74-106); POTASSIUM 3.8 mmol/L (3.5-5.1); SODIUM 144 mmol/L (136-145)
[2017-05-30 16:42] LABS: ALK PHOS 246 U/L (45-117); BILIRUBIN,TOTAL 0.5 mg/dL (0.2-1.0); CREATININE 0.9 mg/dL (0.55-1.02); SGOT/AST 23 U/L (15-37); SGPT/ALT 35 U/L (12-78); TOT PROT 6.7 g/dl (6.4-8.2)
--- NOTE | 2017-05-30 16:58 | EKG ---
Test Reason : Blood Pressure : / mmHG Vent. Rate : 070 BPM Atrial Rate : 070 BPM P-R Int : 134 ms QRS Dur : 076 ms QT Int : 376 ms P-R-T Axes : 056 063 050 degrees QTc Int : 406 ms NORMAL SINUS RHYTHM NORMAL ECG WHEN COMPARED WITH ECG OF 15-APR-2017 15:45, QUESTIONABLE CHANGE IN QRS AXIS Confirmed by ASHLEY STOVER MD ([id number]) on 05/30/2017 4:58:19 PM Referred By: MILAD GASPAR Confirmed By:ASHLEY STOVER MD
[2017-05-30] MEDS: QUEtiapine FUMARATE 50 MG TABLET PO SCH (22:31)
[2017-05-30] MEDS: THIAMINE HCL 100 MG TABLET (FP) PO SCH (22:31)
[2017-05-31] MEDS: chlordiazePOXIDE HCL 25 MG CAPSULE PO SCH ×2 (06:20→10:43)
[2017-05-31] MEDS: NICOTINE 14 MG/24 HOURS TOPICAL PATCH TD SCH (10:42)
[2017-05-31] MEDS: PRENATAL VITAMINS W/ FOLIC ACID TABLET (FP) PO SCH (10:42)
[2017-05-31] MEDS: METHADONE HCL 5 MG TABLET (FOR DETOX USE ONLY) PO SCH (10:43)
[2017-05-31 11:29] LABS: RPR REACTIVE 1:16 (NONREACTIVE)
--- NOTE | 2017-05-31 14:17 | PN ---
[facility] CIWA - CIWA Score Nausea/Vomitin-No Nausea/No Vomiting Muscle Tremors: 3 Anxiety: 3 Agitation: 3 Paroxysmal Sweats: 1-Minimal Palms Moist Orientation: 0-Oriented Tacttile Disturbances: 1-Very Mild Itch/Numbness Auditory Disturbances: 0-None Visual Disturbances: 0-None Headache: 0-None Present CIWA-Ar Total Score: 11 S COWS - Scale Resting Pulse: 1= [place] 81-100 Sweatin= Chills/Flushing Restless Observation: 1= Difficult to Sit Still Pupil Size: 0= Normal to Room Light Bone or Joint Aches: 1= Mild Discomfort Runny Nose/ Eye Tearin= Nasal Congestion GI Upset > 30mins: 1= Stomach Cramp Tremor Observation of Outstretched Hands: 2= Slight Tremor Visible Yawning Observation: 1= 1-2x During Session Anxiety or Irritability: 2=Irritable/Anxious Goose Flesh Skin: 0=Smooth Skin COWS Score: 11 [facility] Progress Note (SOAP) Subjective: anxiety tremor sweat Objective: 05/31/17 14:14 Vital Signs Temperature 98.2 F 05/31/17 10:38 Pulse Rate 88 05/31/17 10:38 Respiratory Rate 18 05/31/17 10:38 Blood Pressure 103/76 05/31/17 10:38 O2 Sat by Pulse Oximetry (%) Laboratory Last Values WBC 4.3 K/mm3 (4.0-10.0) 05/30/17 09:30 RBC 3.89 M/mm3 (3.60-5.2) 05/30/17 09:30 Hgb 10.8 GM/dL (10.7-15.3) 05/30/17 09:30 Hct 32.4 % (32.4-45.2) 05/30/17 09:30 MCV 83.4 fl (80-96) 05/30/17 09:30 MCH 27.8 pg (25.7-33.7) 05/30/17 09:30 MCHC 33.4 g/dl (32.0-36.0) 05/30/17 09:30 RDW 14.9 % (11.6-15.6) 05/30/17 09:30 Plt Count 210 K/MM3 (134-434) 05/30/17 09:30 MPV 9.1 fl (7.5-11.1) D 05/30/17 09:30 Sodium 144 mmol/L (136-145) 05/30/17 09:30 Potassium 3.8 mmol/L (3.5-5.1) 05/30/17 09:30 Chloride 108 mmol/L (98-107) H 05/30/17 09:30 Carbon Dioxide 26 mmol/L (21-32) 05/30/17 09:30 Anion Gap 10 (8-16) 05/30/17 09:30 BUN 13 mg/dL (7-18) 05/30/17 09:30 Creatinine 0.9 mg/dL (0.55-1.02) 05/30/17 09:30 Creat Clearance w eGFR > 60 (>60) 05/30/17 09:30 Random Glucose 145 mg/dL (74-106) H 05/30/17 09:30 Calcium 8.8 mg/dL (8.5-10.1) 05/30/17 09:30 Total Bilirubin 0.5 mg/dL (0.2-1.0) D 05/30/17 09:30 AST 23 U/L (15-37) D 05/30/17 09:30 ALT 35 U/L (12-78) D 05/30/17 09:30 Alkaline Phosphatase 246 U/L (45-117) H 05/30/17 09:30 Total Protein 6.7 g/dl (6.4-8.2) 05/30/17 09:30 Albumin 2.9 g/dl (3.4-5.0) L 05/30/17 09:30 Urine Color Camila 05/29/17 21:00 Urine Appearance Cloudy 05/29/17 21:00 Urine pH 6.0 (5.0-8.0) 05/29/17 21:00 Ur Specific [place] 1.015 (1.001-1.035) 05/29/17 21:00 Urine Protein Negative (NEGATIVE) 05/29/17 21:00 Urine Glucose (UA) Negative (NEGATIVE) 05/29/17 21:00 Urine Ketones 1+ (NEGATIVE) H 05/29/17 21:00 Urine Blood Negative (NEGATIVE) 05/29/17 21:00 Urine Nitrite Negative (NEGATIVE) 01/12/18 21:00 Urine Bilirubin Negative (NEGATIVE) 05/29/17 21:00 Urine Urobilinogen 4.0 e.u/dl mg/dL (0.2-1.0) H 05/29/17 21:00 Ur Leukocyte Esterase 2+ (NEGATIVE) H 05/29/17 21:00 Urine WBC (Auto) 33 /hpf (3-5) 05/29/17 21:00 Urine RBC (Auto) 15 /hpf (0-3) 05/29/17 21:00 Ur Epithelial Cells Moderate /HPF (FEW) 05/29/17 21:00 Calcium Oxalate Crystal Rare /hpf (NONE SEEN) 05/29/17 21:00 Urine Mucus Few 05/29/17 21:00 RPR Titer Reactive 1:16 (NONREACTIVE) H D 05/30/17 09:30 lab noted received lab call that rpr 1:16 case discussed with the patient that the patient denies history of + syphilus, denies history of treatment for syphilis Assessment: 05/31/17 14:16 withdrawal sx waiting for [facility] result 05/31/17 14:17 Plan: continue [facility] health teaching on safe sex and important of treatment for syphilis
[2017-05-31 14:35] LABS: TREPONEMA ANTIBODY REACTIVE (NONREACTIVE)
[2017-05-31] MEDS ORDERED: PENICILLIN G BENZATHINE 2,400,000 UNIT/4 ML PFS IM ONE (15:30)
[2017-05-31] MEDS: ACETAMINOPHEN 325 MG TABLET (FP) PO PRN (16:11)
[2017-05-31] MEDS: chlordiazePOXIDE 5 MG CAPSULE PO SCH ×2 (16:44→22:31)
[2017-05-31] MEDS: hydrOXYzine PAMOATE 50 MG CAPSULE (FP) PO PRN ×2 (17:23→22:31)
[2017-05-31] MEDS: QUEtiapine FUMARATE 50 MG TABLET PO SCH (22:31)
[2017-05-31] MEDS: THIAMINE HCL 100 MG TABLET (FP) PO SCH (22:31)
[2017-06-01] MEDS: chlordiazePOXIDE 5 MG CAPSULE PO SCH ×2 (05:29→10:53)
[2017-06-01] MEDS: PRENATAL VITAMINS W/ FOLIC ACID TABLET (FP) PO SCH (10:52)
[2017-06-01] MEDS: NICOTINE 14 MG/24 HOURS TOPICAL PATCH TD SCH (10:53)
[2017-06-01] MEDS: METHADONE HCL 5 MG TABLET (FOR DETOX USE ONLY) PO SCH (10:53)
[2017-06-01] MEDS: hydrOXYzine PAMOATE 50 MG CAPSULE (FP) PO PRN ×3 (10:55→22:30)
[2017-06-01] MEDS ORDERED: COLLOIDAL OATMEAL 1 BAR EACH TP PRN (10:59)
--- NOTE | 2017-06-01 11:52 | PN ---
S Progress Note (SOAP) Subjective: ALERT,IRRITABLE,ANXIOUS,INTERRUPTED SLEEP,TREMOR RASH BOTH FOREARMS,ITCHING Objective: 06/01/17 11:49 Vital Signs Temperature 97.5 F L 06/01/17 11:44 Pulse Rate 83 06/01/17 11:44 Respiratory Rate 16 06/01/17 11:44 Blood Pressure 106/62 06/01/17 11:44 O2 Sat by Pulse Oximetry (%) Assessment: 06/01/17 11:49 WITHDRAWAL SYMPTOM CONTACT DERMATITIS Plan: CONTINUE DETOX,AVEENO SOAP,HYDROCORTISONE CREAM,CONTINUE DETOX
[2017-06-01] MEDS: HYDROCORTISONE 1% TOPICAL CREAM 30 GM TUBE TP SCH ×2 (12:32→22:30)
[2017-06-01] MEDS: chlordiazePOXIDE HCL 10 MG CAPSULE PO SCH ×2 (16:38→22:30)
[2017-06-01] MEDS: QUEtiapine FUMARATE 50 MG TABLET PO SCH (22:30)
[2017-06-01] MEDS: THIAMINE HCL 100 MG TABLET (FP) PO SCH (22:30)
[2017-06-02] MEDS: chlordiazePOXIDE HCL 10 MG CAPSULE PO SCH ×2 (05:21→10:45)
[2017-06-02] MEDS: hydrOXYzine PAMOATE 50 MG CAPSULE (FP) PO PRN (09:10)
[2017-06-02] MEDS ORDERED: METHADONE HCL 10 MG TABLET (FOR DETOX USE ONLY) PO SCH (10:00)
[2017-06-02] MEDS: PRENATAL VITAMINS W/ FOLIC ACID TABLET (FP) PO SCH (10:45)
[2017-06-02] MEDS: HYDROCORTISONE 1% TOPICAL CREAM 30 GM TUBE TP SCH (10:46)
[2017-06-02] MEDS: NICOTINE 14 MG/24 HOURS TOPICAL PATCH TD SCH (10:46)
[2017-06-02] MEDS ORDERED: hydrOXYzine PAMOATE 50 MG CAPSULE (FP) PO ONE (11:54)
--- NOTE | 2017-06-02 13:00 | PN ---
[facility] Progress Note (SOAP) Subjective: tremors, anxiety, interrupted sleep Objective: 06/02/17 12:59 Vital Signs Temperature 96.6 F L 06/02/17 10:18 Pulse Rate 74 06/02/17 10:18 Respiratory Rate 18 06/02/17 10:18 Blood Pressure 97/63 06/02/17 10:18 O2 Sat by Pulse Oximetry (%) Laboratory Last Values WBC 4.3 K/mm3 (4.0-10.0) 05/30/17 09:30 RBC 3.89 M/mm3 (3.60-5.2) 05/30/17 09:30 Hgb 10.8 GM/dL (10.7-15.3) 05/30/17 09:30 Hct 32.4 % (32.4-45.2) 05/30/17 09:30 MCV 83.4 fl (80-96) 05/30/17 09:30 MCH 27.8 pg (25.7-33.7) 05/30/17 09:30 MCHC 33.4 g/dl (32.0-36.0) 05/30/17 09:30 RDW 14.9 % (11.6-15.6) 05/30/17 09:30 Plt Count 210 K/MM3 (134-434) 05/30/17 09:30 MPV 9.1 fl (7.5-11.1) D 05/30/17 09:30 Sodium 144 mmol/L (136-145) 05/30/17 09:30 Potassium 3.8 mmol/L (3.5-5.1) 05/30/17 09:30 Chloride 108 mmol/L (98-107) H 05/30/17 09:30 Carbon Dioxide 26 mmol/L (21-32) 05/30/17 09:30 Anion Gap 10 (8-16) 05/30/17 09:30 BUN 13 mg/dL (7-18) 05/30/17 09:30 Creatinine 0.9 mg/dL (0.55-1.02) 05/30/17 09:30 Creat Clearance w eGFR > 60 (>60) 05/30/17 09:30 Random Glucose 145 mg/dL (74-106) H 05/30/17 09:30 Calcium 8.8 mg/dL (8.5-10.1) 05/30/17 09:30 Total Bilirubin 0.5 mg/dL (0.2-1.0) D 05/30/17 09:30 AST 23 U/L (15-37) D 05/30/17 09:30 ALT 35 U/L (12-78) D 05/30/17 09:30 Alkaline Phosphatase 246 U/L (45-117) H 05/30/17 09:30 Total Protein 6.7 g/dl (6.4-8.2) 05/30/17 09:30 Albumin 2.9 g/dl (3.4-5.0) L 05/30/17 09:30 Urine Color Camila 05/29/17 21:00 Urine Appearance Cloudy 05/29/17 21:00 Urine pH 6.0 (5.0-8.0) 05/29/17 21:00 Ur Specific [place] 1.015 (1.001-1.035) 05/29/17 21:00 Urine Protein Negative (NEGATIVE) 05/29/17 21:00 Urine Glucose (UA) Negative (NEGATIVE) 05/29/17 21:00 Urine Ketones 1+ (NEGATIVE) H 05/29/17 21:00 Urine Blood Negative (NEGATIVE) 05/29/17 21:00 Urine Nitrite Negative (NEGATIVE) 05/29/17 21:00 Urine Bilirubin Negative (NEGATIVE) 05/29/17 21:00 Urine Urobilinogen 4.0 e.u/dl mg/dL (0.2-1.0) H 05/29/17 21:00 Ur Leukocyte Esterase 2+ (NEGATIVE) H 05/29/17 21:00 Urine WBC (Auto) 33 /hpf (3-5) 05/29/17 21:00 Urine RBC (Auto) 15 /hpf (0-3) 05/29/17 21:00 Ur Epithelial Cells Moderate /HPF (FEW) 05/29/17 21:00 Calcium Oxalate Crystal Rare /hpf (NONE SEEN) 05/29/17 21:00 Urine Mucus Few 05/29/17 21:00 RPR Titer Reactive 1:16 (NONREACTIVE) H D 05/30/17 09:30 T.pallidum Ab ([facility]) Reactive (NONREACTIVE) 05/30/17 09:30 Labs noted Assessment: 06/02/17 13:00 withdrawal symptoms Plan: Continue detox
--- NOTE | 2017-06-02 13:46 | PN ---
[facility] Progress Note Note: pt states she feels fine and wants to go home. will d/c now as per pt request.
--- NOTE | 2017-06-02 13:47 | DS ---
[facility] Detox Discharge Summary Admission Date: 05/29/17 Discharge Date: 06/02/17 - History Present History: Alcohol Dependence, Cocaine Dependence, Opioid Dependence - Physical Exam Results Vital Signs: Vital Signs Temperature 96.6 F L 06/02/17 10:18 Pulse Rate 74 06/02/17 10:18 Respiratory Rate 18 06/02/17 10:18 Blood Pressure 97/63 06/02/17 10:18 O2 Sat by Pulse Oximetry (%) - Treatment Hospital Course: Detox Protocol Followed, Detoxed Safely, Responded well, Discharged Condition Good, Rehab Referral Accepted - Medication Discharge Medications: Ambulatory Orders Quetiapine Fumarate [Seroquel -] 300 mg PO HS 05/29/17 Zolpidem Tartrate [Ambien] 10 mg PO HS 05/29/17 - AMA Did Patient Leave Against Medical Advice: No (early discharge going home)
[2017-06-02 13:52] LABS: URINE APPEARANCE CLOUDY; URINE BILIRUBIN NEGATIVE (NEGATIVE); URINE BLOOD NEGATIVE (NEGATIVE); URINE COLOR YELLOW; URINE GLUCOSE (UA) NEGATIVE (NEGATIVE); URINE KETONE NEGATIVE (NEGATIVE); URINE NITRITE NEGATIVE (NEGATIVE); URINE PROTEIN NEGATIVE (NEGATIVE); URINE UROBILINOGEN NEGATIVE mg/dL (0.2-1.0)
[2017-06-02 14:34] VITALS: BP 123/59; PULSE 90; TEMP 97.9
[2017-06-02 14:34] LABS: URINE LEUK ESTERASE 3+ (NEGATIVE)
[2017-06-02 15:34] LABS: EPI CELLS MANY /HPF (FEW); YEAST MODERATE
[2017-06-03] MEDS ORDERED: METHADONE HCL 5 MG TABLET (FOR DETOX USE ONLY) PO SCH (06:00)
== END 2017-06-02 14:13 | disposition home or self-care (01) | DRG 773 ==
LOC: YASAS 10:28 → Y6N 15:48
PROVIDERS: ADMIT Internal Medicine; ATTEND Internal Medicine
PROC: HZ2ZZZZ Detoxification Services for Substance Abuse Treatment (ICD-10-PCS; principal; 2017-05-29)
DX: F11.23 Opioid dependence with withdrawal (principal); F10.230 Alcohol dependence with withdrawal, uncomplicated; F14.20 Cocaine dependence, uncomplicated; F17.213 Nicotine dependence, cigarettes, with withdrawal; F19.24 Other psychoactive substance dependence with psychoactive substance-induced mood disorder; F43.10 Post-traumatic stress disorder, unspecified; L25.9 Unspecified contact dermatitis, unspecified cause; G47.00 Insomnia, unspecified
CPT/HCPCS: 36415; 80053; 81003; 81015; 85027; 86593; 86780; 93005; 93010

== ENCOUNTER 2017-08-01 08:56 | Inpatient (IN) | payer OTHER ==
[2017-08-01 09:54] VITALS: BMI 23.6
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
[2017-08-01] MEDS ORDERED: ACETAMINOPHEN 325 MG TABLET (FP) PO PRN (10:49)
[2017-08-01] MEDS ORDERED: MENTHOL/PHENOL 1 EACH UD MM PRN (10:49)
[2017-08-01] MEDS ORDERED: MAGNESIUM CITRATE 300 ML BOTTLE PO PRN (10:49)
[2017-08-01] MEDS ORDERED: chlordiazePOXIDE HCL 25 MG CAPSULE PO ONE (10:49)
[2017-08-01] MEDS ORDERED: MAGNESIUM HYDROX 2400MG/30ML ORAL SUSPENSION 30 ML CUP PO PRN (10:49)
[2017-08-01] MEDS ORDERED: MAG HYDROX/AL HYDROX/SIMETH 30 ML UNIT-DOSE CUP PO PRN (10:49)
[2017-08-01] MEDS ORDERED: P-EPHED 60MG/TRIPROLIDI 2.5MG TABLET PO PRN (10:49)
[2017-08-01] MEDS ORDERED: METHADONE HCL 10 MG TABLET (FOR DETOX USE ONLY) PO ONE ×3 (10:49→23:00)
[2017-08-01] MEDS ORDERED: IBUPROFEN 400 MG TABLET (FP) PO PRN (10:49)
[2017-08-01] MEDS ORDERED: LOPERAMIDE HCL 2 MG CAPSULE PO PRN (10:49)
[2017-08-01] MEDS ORDERED: guaiFENesin/D-METHORPHAN HB 10 ML UNIT-DOSE CUPS PO PRN (10:49)
[2017-08-01] MEDS ORDERED: chlordiazePOXIDE HCL 25 MG CAPSULE ONE (15:22)
[2017-08-01] MEDS: BENZOYL PEROXIDE 5% 60 GM GEL..GRAM. TP SCH (15:25)
[2017-08-01] MEDS: chlordiazePOXIDE HCL 25 MG CAPSULE PO SCH ×2 (17:55→22:35)
[2017-08-01 18:15] LABS: URINE APPEARANCE CLOUDY; URINE BILIRUBIN NEGATIVE (NEGATIVE); URINE BLOOD NEGATIVE (NEGATIVE); URINE COLOR DKYELLOW; URINE GLUCOSE (UA) NEGATIVE (NEGATIVE); URINE KETONE NEGATIVE (NEGATIVE); URINE LEUK ESTERASE TRACE (NEGATIVE); URINE NITRITE NEGATIVE (NEGATIVE); URINE PROTEIN NEGATIVE (NEGATIVE)
[2017-08-01 18:19] LABS: EPI CELLS MANY /HPF (FEW); URINE BACTERIA RARE /hpf (NONE SEEN); URINE HYALINE CAST 9 /lpf; URINE MUCUS MANY
[2017-08-01] MEDS: THIAMINE HCL 100 MG TABLET (FP) PO SCH (22:35)
[2017-08-02] MEDS: hydrOXYzine PAMOATE 50 MG CAPSULE (FP) PO PRN ×2 (00:01→13:02)
[2017-08-02] MEDS: chlordiazePOXIDE HCL 25 MG CAPSULE PO SCH ×3 (06:16→18:10)
--- NOTE | 2017-08-02 09:36 | PN ---
[facility] CIWA - CIWA Score Nausea/Vomitin-Mild Nausea/No Vomiting Muscle Tremors: 4-Moderate,w/Arms Extend Anxiety: 4-Mod. Anxious/Guarded Agitation: 3 Paroxysmal Sweats: 1-Minimal Palms Moist Orientation: 0-Oriented Tacttile Disturbances: 1-Very Mild Itch/Numbness Auditory Disturbances: 0-None Visual Disturbances: 0-None Headache: 0-None Present CIWA-Ar Total Score: 14 S COWS - Scale Resting Pulse: 0= [place] 80 or Below Sweatin= Chills/Flushing Restless Observation: 1= Difficult to Sit Still Pupil Size: 0= Normal to Room Light Bone or Joint Aches: 1= Mild Discomfort Runny Nose/ Eye Tearin= None GI Upset > 30mins: 2= Nausea/Diarrhea Tremor Observation of Outstretched Hands: 1= Tremor [place], Not Seen Yawning Observation: 0= None Anxiety or Irritability: 1=Feels Anxious/Irritable Goose Flesh Skin: 0=Smooth Skin COWS Score: 7 [facility] Progress Note (SOAP) Subjective: joint pain muscle ache tremor sweat anxiety restlessness gi distress Objective: 08/02/17 09:34 Vital Signs Temperature 97.2 F L 08/02/17 07:35 Pulse Rate 72 08/02/17 07:35 Respiratory Rate 18 08/02/17 07:35 Blood Pressure 93/54 08/02/17 07:35 O2 Sat by Pulse Oximetry (%) Vital Signs Temperature 97.2 F L 08/02/17 07:35 Pulse Rate 72 08/02/17 07:35 Respiratory Rate 18 08/02/17 07:35 Blood Pressure 93/54 08/02/17 07:35 O2 Sat by Pulse Oximetry (%) Laboratory Last Values Urine Color Dkyellow 08/01/17 18:05 Urine Appearance Cloudy 08/01/17 18:05 Urine pH 5.0 (5.0-8.0) 08/01/17 18:05 Ur Specific [place] 1.025 (1.001-1.035) 08/01/17 18:05 Urine Protein Negative (NEGATIVE) 08/01/17 18:05 Urine Glucose (UA) Negative (NEGATIVE) 08/01/17 18:05 Urine Ketones Negative (NEGATIVE) 08/01/17 18:05 Urine Blood Negative (NEGATIVE) 08/01/17 18:05 Urine Nitrite Negative (NEGATIVE) 08/01/17 18:05 Urine Bilirubin Negative (NEGATIVE) 08/01/17 18:05 Urine Urobilinogen 2.0 mg/dL (0.2-1.0) H 08/01/17 18:05 Ur Leukocyte Esterase Trace (NEGATIVE) 08/01/17 18:05 Urine WBC (Auto) 13 /hpf (3-5) 08/01/17 18:05 Urine RBC (Auto) 12 /hpf (0-3) 08/01/17 18:05 Ur Epithelial Cells Many /HPF (FEW) 08/01/17 18:05 Urine Bacteria Rare /hpf (NONE SEEN) 08/01/17 18:05 Hyaline Casts 9 /lpf 08/01/17 18:05 Urine Mucus Many 08/01/17 18:05 lab noted Assessment: 08/02/17 09:35 withdrawal sx Plan: continue detox
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
[2017-08-02] MEDS ORDERED: METHADONE HCL 10 MG TABLET (FOR DETOX USE ONLY) PO SCH (10:00)
[2017-08-02] MEDS: PRENATAL VITAMINS W/ FOLIC ACID TABLET (FP) PO SCH (10:12)
[2017-08-02 10:48] LABS: HEMOGLOBIN 13.1 GM/dL (10.7-15.3); MEAN CELL VOLUME 87.1 fl (80-96); MEAN PLT VOLUME 8.7 fl (7.5-11.1)
[2017-08-02 10:55] LABS: HEMATOCRIT 40.1 % (32.4-45.2); MCH 28.4 pg (25.7-33.7); MCHC 32.6 g/dl (32.0-36.0); PLATELET COUNT 184 K/MM3 (134-434); RDW 19.8 % (11.6-15.6); WHITE BLOOD COUNT 5.1 K/mm3 (4.0-10.0)
[2017-08-02 10:58] LABS: ALBUMIN 3.6 g/dl (3.4-5.0); ANION GAP 5 (8-16); BLOOD UREA NITROGEN 15 mg/dL (7-18); CALCIUM 8.5 mg/dL (8.5-10.1); CHLORIDE 109 mmol/L (98-107); CO2 28 mmol/L (21-32); CREATININE 0.7 mg/dL (0.55-1.02); GLUCOSE,RANDOM 77 mg/dL (74-106); POTASSIUM 4.3 mmol/L (3.5-5.1); SGOT/AST 12 U/L (15-37); SGPT/ALT 23 U/L (12-78); SODIUM 142 mmol/L (136-145); TOT PROT 6.9 g/dl (6.4-8.2)
[2017-08-02 11:08] LABS: ALK PHOS 107 U/L (45-117); BILIRUBIN,TOTAL 0.2 mg/dL (0.2-1.0)
[2017-08-02] MEDS: chlordiazePOXIDE HCL 25 MG CAPSULE PO PRN (12:05)
[2017-08-02 12:14] LABS: RPR REACTIVE 1:8 (NONREACTIVE)
[2017-08-02 12:15] LABS: TREPONEMA ANTIBODY PREVIOUSLY REACTIVE (NONREACTIVE)
[2017-08-02] MEDS: BENZOYL PEROXIDE 5% 60 GM GEL..GRAM. TP SCH (13:36)
[2017-08-02] MEDS: QUEtiapine FUMARATE 50 MG TABLET PO SCH (15:07)
[2017-08-02] MEDS: QUEtiapine FUMARATE 100 MG TABLET (FP) PO SCH (22:15)
[2017-08-02] MEDS: ZOLPIDEM TARTRATE 5 MG TABLET PO PRN (22:15)
[2017-08-02] MEDS: THIAMINE HCL 100 MG TABLET (FP) PO SCH (22:15)
[2017-08-03] MEDS: chlordiazePOXIDE HCL 25 MG CAPSULE PO SCH ×3 (00:05→10:23)
--- NOTE | 2017-08-03 00:14 | EKG ---
Test Reason : Blood Pressure : / mmHG Vent. Rate : 071 BPM Atrial Rate : 071 BPM P-R Int : 138 ms QRS Dur : 084 ms QT Int : 368 ms P-R-T Axes : 047 063 036 degrees QTc Int : 399 ms SINUS RHYTHM WITH MARKED SINUS ARRHYTHMIA OTHERWISE NORMAL ECG WHEN COMPARED WITH ECG OF 29-MAY-2017 17:36, NO SIGNIFICANT CHANGE WAS FOUND Confirmed by MALINI JOSE MD ([id number]) on 08/03/2017 12:13:44 AM Referred By: Confirmed By:MALINI JOSE MD
[2017-08-03] MEDS ORDERED: PENICILLIN G BENZATHINE 2,400,000 UNIT/4 ML PFS IM ONE (10:00)
[2017-08-03] MEDS: PRENATAL VITAMINS W/ FOLIC ACID TABLET (FP) PO SCH (10:23)
[2017-08-03] MEDS: QUEtiapine FUMARATE 50 MG TABLET PO SCH (10:23)
[2017-08-03] MEDS: METHADONE HCL 5 MG TABLET (FOR DETOX USE ONLY) PO SCH (10:24)
[2017-08-03] MEDS: BENZOYL PEROXIDE 5% 60 GM GEL..GRAM. TP SCH (10:27)
--- NOTE | 2017-08-03 10:34 | PN ---
S CIWA - CIWA Score Nausea/Vomitin Muscle Tremors: 3 Anxiety: 3 Agitation: 3 Paroxysmal Sweats: 1-Minimal Palms Moist Orientation: 0-Oriented Tacttile Disturbances: 1-Very Mild Itch/Numbness Auditory Disturbances: 1-Very Mild Visual Disturbances: 0-None Headache: 2-Mild CIWA-Ar Total Score: 17 [facility] COWS - Scale Resting Pulse: 1= [place] 81-100 Sweatin= Chills/Flushing Restless Observation: 3= Extraneous Movement Pupil Size: 1= Pupils >than Normal Bone or Joint Aches: 2= Severe Diffuse Aches Runny Nose/ Eye Tearin= Nasal Congestion GI Upset > 30mins: 2= Nausea/Diarrhea Tremor Observation of Outstretched Hands: 2= Slight Tremor Visible Yawning Observation: 1= 1-2x During Session Anxiety or Irritability: 2=Irritable/Anxious Goose Flesh Skin: 0=Smooth Skin COWS Score: 16 [facility] Progress Note (SOAP) Subjective: ALERT,IRRITABLE PAIN IN THE BODY ,ANXIOUS,INTERRUPTED SLEEP,RASH OF FACE AND UPPER CHEST Objective: 08/03/17 10:32 Vital Signs Temperature 96.6 F L 08/03/17 06:57 Pulse Rate 88 08/03/17 06:57 Respiratory Rate 19 08/03/17 06:57 Blood Pressure 110/43 08/03/17 06:57 O2 Sat by Pulse Oximetry (%) EKG NSR WITH SINUS ARRHYTHMIA NORMAL ECG 08/03/17 10:35 Laboratory Last Values WBC 5.1 K/mm3 (4.0-10.0) 08/02/17 08:00 RBC 4.60 M/mm3 (3.60-5.2) 08/02/17 08:00 Hgb 13.1 GM/dL (10.7-15.3) D 08/02/17 08:00 Hct 40.1 % (32.4-45.2) D 08/02/17 08:00 MCV 87.1 fl (80-96) 08/02/17 08:00 MCH 28.4 pg (25.7-33.7) 08/02/17 08:00 MCHC 32.6 g/dl (32.0-36.0) 08/02/17 08:00 RDW 19.8 % (11.6-15.6) H D 08/02/17 08:00 Plt Count 184 K/MM3 (134-434) 08/02/17 08:00 MPV 8.7 fl (7.5-11.1) 08/02/17 08:00 Sodium 142 mmol/L (136-145) 08/02/17 08:00 Potassium 4.3 mmol/L (3.5-5.1) 08/02/17 08:00 Chloride 109 mmol/L (98-107) H 08/02/17 08:00 Carbon Dioxide 28 mmol/L (21-32) 08/02/17 08:00 Anion Gap 5 (8-16) L 08/02/17 08:00 BUN 15 mg/dL (7-18) 08/02/17 08:00 Creatinine 0.7 mg/dL (0.55-1.02) 08/02/17 08:00 Creat Clearance w eGFR > 60 (>60) 08/02/17 08:00 Random Glucose 77 mg/dL (74-106) 08/02/17 08:00 Calcium 8.5 mg/dL (8.5-10.1) 08/02/17 08:00 Total Bilirubin 0.2 mg/dL (0.2-1.0) D 08/02/17 08:00 AST 12 U/L (15-37) L 08/02/17 08:00 ALT 23 U/L (12-78) 08/02/17 08:00 Alkaline Phosphatase 107 U/L (45-117) 08/02/17 08:00 Total Protein 6.9 g/dl (6.4-8.2) 08/02/17 08:00 Albumin 3.6 g/dl (3.4-5.0) 08/02/17 08:00 Urine Color Dkyellow 08/01/17 18:05 Urine Appearance Cloudy 08/01/17 18:05 Urine pH 5.0 (5.0-8.0) 08/01/17 18:05 Ur Specific [place] 1.025 (1.001-1.035) 08/01/17 18:05 Urine Protein Negative (NEGATIVE) 08/01/17 18:05 Urine Glucose (UA) Negative (NEGATIVE) 08/01/17 18:05 Urine Ketones Negative (NEGATIVE) 08/01/17 18:05 Urine Blood Negative (NEGATIVE) 08/01/17 18:05 Urine Nitrite Negative (NEGATIVE) 08/01/17 18:05 Urine Bilirubin Negative (NEGATIVE) 08/01/17 18:05 Urine Urobilinogen 2.0 mg/dL (0.2-1.0) H 08/01/17 18:05 Ur Leukocyte Esterase Trace (NEGATIVE) 08/01/17 18:05 Urine WBC (Auto) 13 /hpf (3-5) 08/01/17 18:05 Urine RBC (Auto) 12 /hpf (0-3) 08/01/17 18:05 Ur Epithelial Cells Many /HPF (FEW) 08/01/17 18:05 Urine Bacteria Rare /hpf (NONE SEEN) 08/01/17 18:05 Hyaline Casts 9 /lpf 08/01/17 18:05 Urine Mucus Many 08/01/17 18:05 RPR Titer Reactive 1:8 (NONREACTIVE) H D 08/02/17 08:00 T.pallidum Ab (MHA) Previously reactive (NONREACTIVE) 08/02/17 08:00 08/03/17 10:42 HISTORY OF SYPHILIS HAD TREATIENT IN THE PAST WILL GIVE BICILLIN 2.4 MILLION IM PATIENT WILL FOLLOW UP WITH HER PMD Assessment: 08/03/17 10:34 WITHDRAWAL SYMPTOM Plan: CONTINUE DETOX,LIDEX CREAM,BICILLIN 2.4 MILLION UNITS IM
[2017-08-03] MEDS: chlordiazePOXIDE HCL 25 MG CAPSULE PO PRN ×2 (12:02→18:49)
[2017-08-03] MEDS: FLUOCINONIDE 0.05% CREAM (15 GM TUBE) TP SCH ×2 (12:35→22:09)
[2017-08-03] MEDS: chlordiazePOXIDE 5 MG CAPSULE PO SCH ×2 (17:06→22:08)
[2017-08-03] MEDS: ZOLPIDEM TARTRATE 5 MG TABLET PO PRN (22:08)
[2017-08-03] MEDS: THIAMINE HCL 100 MG TABLET (FP) PO SCH (22:09)
[2017-08-03] MEDS: QUEtiapine FUMARATE 100 MG TABLET (FP) PO SCH (22:09)
[2017-08-04] MEDS: chlordiazePOXIDE 5 MG CAPSULE PO SCH ×3 (05:33→23:25)
[2017-08-04] MEDS: chlordiazePOXIDE HCL 25 MG CAPSULE PO PRN (08:42)
--- NOTE | 2017-08-04 08:50 | PN ---
S Progress Note (SOAP) Subjective: ALERT,IRRITABLE,ANXIOUS,INTERRUPTED SLEEP,TREMOR,PAIN IN THE BODY, Objective: 08/04/17 08:43 Vital Signs Temperature 97.7 F 08/04/17 05:59 Pulse Rate 80 08/04/17 05:59 Respiratory Rate 16 08/04/17 05:59 Blood Pressure 111/63 08/04/17 05:59 O2 Sat by Pulse Oximetry (%) Assessment: 08/04/17 08:44 WITHDRAWAL SYMPTOM Plan: CONTINUE DETOX,RECEIVING BICILLIN 2.4 MILLION UNIT ON 08/03/17, NEEDED BICILLIN 2.4 MILLION ON 08/10/17 AND 08/17/17,PATIENT WILL GO TO [facility] FOR CONTINUATION OF CARE AND FOR BICILLIN TREATMENT
[2017-08-04] MEDS: PRENATAL VITAMINS W/ FOLIC ACID TABLET (FP) PO SCH (10:12)
[2017-08-04] MEDS: METHADONE HCL 5 MG TABLET (FOR DETOX USE ONLY) PO SCH (10:12)
[2017-08-04] MEDS: QUEtiapine FUMARATE 50 MG TABLET PO SCH (10:12)
[2017-08-04] MEDS: FLUOCINONIDE 0.05% CREAM (15 GM TUBE) TP SCH ×2 (10:15→22:21)
[2017-08-04] MEDS: hydrOXYzine PAMOATE 50 MG CAPSULE (FP) PO PRN (11:35)
--- NOTE | 2017-08-04 11:49 | PN ---
Psychiatric Progress Note Vital Signs: Vital Signs Period Temp Pulse Resp BP Sys/Starks Pulse Ox Last 24 Hr 97.3 F-98.1 F 74-83 16-20 110-117/61-71 Date of Session: 08/04/17 Chief Complaint:: "I need my medications." HPI: Pt. admitted to for alcohol, heroin, cocaine, marijuana and xanax dependence. ROS: Unremarkable. Current Medications: Active Medications Generic Name Dose Route Start Last Admin Trade Name Freq PRN Reason Stop Dose Admin Acetaminophen 650 mg 08/01/17 10:49 Tylenol - PO Q4H PRN FEVER Al Hydroxide/Mg Hydroxide 30 ml 08/01/17 10:49 Mylanta Oral Suspension - PO Q6H PRN DYSPEPSIA Chlordiazepoxide HCl 10 mg 08/04/17 17:00 Librium - PO 08/05/17 11:01 [id number] BARNEY Eucalyptus/Menthol/Phenol/Sorbitol 1 each 08/01/17 10:49 08/02/17 10:18 Cepastat Lozenge - MM 1 each Q4H PRN Administration SORE THROAT Fluocinonide 1 applic 08/03/17 11:40 08/04/17 10:15 Lidex 0.05% Cream - TP 1 applic BID BARNEY Administration Guaifenesin 10 ml 08/01/17 10:49 08/02/17 10:18 Robitussin Dm - PO 10 ml Q6H PRN Administration COUGH Hydroxyzine Pamoate 50 mg 08/01/17 10:49 08/04/17 11:35 Vistaril - PO 50 mg Q4H PRN Administration AGITATION Ibuprofen 400 mg 08/01/17 10:49 Motrin - PO Q6H PRN PAIN LEVEL 4-6 Loperamide HCl 4 mg 08/01/17 10:49 Imodium - PO Q6H PRN DIARRHEA Magnesium Citrate 300 ml 08/01/17 10:49 Citroma - PO Q48H PRN CONSTIPATION Magnesium Hydroxide 30 ml 08/01/17 10:49 Milk Of Magnesia - PO DAILY PRN CONSTIPATION Methadone HCl 5 mg 08/06/17 06:00 Dolophine - PO 08/06/17 06:01 DAILY@0600 BARNEY Methadone HCl 10 mg 08/05/17 10:00 Dolophine - PO 03/21/18 10:01 DAILY BARNEY Multivit/Folic Acid/Iron 1 tab 08/02/17 10:00 08/04/17 10:12 Vitamins (Sjr) - PO 1 tab DAILY BARNEY Administration Pseudoephedrine/Triprolidine 1 combo 08/01/17 10:49 08/02/17 10:17 Actifed - PO 1 combo TID PRN Administration NASAL CONGESTION Quetiapine Fumarate 50 mg 08/02/17 16:00 08/04/17 10:12 Seroquel - PO 50 mg DAILY BARNEY Administration Quetiapine Fumarate 100 mg 08/02/17 22:00 08/03/17 22:09 Seroquel - PO 100 mg HS BARNEY Administration Thiamine HCl 100 mg 08/01/17 22:00 08/03/17 22:09 Vitamin B1 - PO 100 mg HS BARNEY Administration Zolpidem Tartrate 10 mg 08/02/17 12:57 08/03/17 22:08 Ambien - PO 10 mg HS PRN Administration INSOMNIA Medication(s) Change(s): No. Current Side Effect: No Lab tests ordered: No Lab tests reviewed: Yes Provider note:: Associate Sales Manager met with patient for psychiatric reconsultation. Pt. requesting her psychotrophic medications. Pt. made aware that she was seen by Dr. Wray on thursday08/02/17 and that her seroquel 50mg po daily +Seroquel 100mg qhs + Ambien 10mg qhs prn was ordered. Pt. unaware of this information. Pt. then requesting medication for anxiety. Pt. made aware that vistaril was ordered. Pt. encouraged to utilize her coping skills when her anxiety increases. Pt. satisified and receptive to feedback. Will continue to monitor. Total face to face time:: 15 Mental Status Exam - Mental Status Exam Alert and Oriented to: Time, Place, Person Cognitive Function: Good Mood: Hopeful Affect: Appropriate Patient Behavior: Appropriate, Cooperative Speech Pattern: Clear, Appropriate Voice Loudness: Normal Thought Process: Goal Oriented Thought Disorder: Not Present Hallucinations: Denies Suicidal Ideation: Denies Homicidal Ideation: Denies Insight/Judgement: Poor Sleep: Fair Appetite: Fair Muscle strength/Tone: Normal Gait/Station: Normal Psychiatric Treatment Plan - Problem List (1) Alcohol dependence with uncomplicated withdrawal Current Visit: Yes (2) Cannabis dependence Current Visit: Yes (3) Cocaine dependence, uncomplicated Current Visit: Yes (4) Nicotine dependence Current Visit: Yes Qualifiers: Nicotine product type: cigarettes Substance use status: in withdrawal Qualified Code(s): F17.213 - Nicotine dependence, cigarettes, with withdrawal (5) Opioid dependence with withdrawal Current Visit: Yes (6) Sedative hypnotic or anxiolytic dependence Current Visit: Yes (7) Borderline personality disorder Current Visit: Yes (8) MDD (major depressive disorder), recurrent episode, moderate Current Visit: Yes (9) PTSD (post-traumatic stress disorder) Current Visit: Yes
[2017-08-04] MEDS ORDERED: diphenhydrAMINE HCL 50 MG CAPSULE PO ONE ×2 (12:20→23:30)
--- NOTE | 2017-08-04 12:23 | PN ---
S Progress Note Note: Pt. c/o anxiety and restlessness. Pt. given vistaril 50mg prn at 11:35am. Medication not effective. Case discussed with RN. One time dose of benadryl 50mg ordered. Pt. observed in the day room socializing with peers and not exhibiting any signs of anxiety several minutes after benadryl 50mg dose was given to patient. Will continue to monitor. .
[2017-08-04] MEDS ORDERED: diphenhydrAMINE HCL 25 MG CAPSULE (FP) PO ONE ×2 (12:34→23:30)
[2017-08-04] MEDS ORDERED: chlordiazePOXIDE HCL 10 MG CAPSULE PO SCH ×2 (17:00→23:00)
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
[2017-08-04] MEDS: QUEtiapine FUMARATE 100 MG TABLET (FP) PO SCH (22:17)
[2017-08-04] MEDS: THIAMINE HCL 100 MG TABLET (FP) PO SCH (22:17)
[2017-08-05] MEDS: chlordiazePOXIDE 5 MG CAPSULE PO SCH ×2 (05:36→10:41)
--- NOTE | 2017-08-05 09:17 | PN ---
S Progress Note (SOAP) Subjective: ALERT,IRRITABLE,ANXIOUS,INTERRUPTED SLEEP Objective: 08/05/17 09:15 Vital Signs Temperature 97.7 F 08/05/17 06:00 Pulse Rate 74 08/05/17 06:00 Respiratory Rate 16 08/05/17 06:00 Blood Pressure 104/67 08/05/17 06:00 O2 Sat by Pulse Oximetry (%) Assessment: 08/05/17 09:15 WITHDRAWAL SYMPTOM Plan: CONTINUE DETOX,BENADRYL 25 MGS PO FOR ANXIOUS,DOES NOT WANT VISTARIL,DISCHARGE IN AM
[2017-08-05] MEDS ORDERED: diphenhydrAMINE HCL 25 MG CAPSULE (FP) PO ONE (09:46)
[2017-08-05] MEDS ORDERED: METHADONE HCL 10 MG TABLET (FOR DETOX USE ONLY) PO SCH (10:00)
[2017-08-05] MEDS ORDERED: METHADONE HCL 5 MG TABLET (FOR DETOX USE ONLY) PO SCH (10:00)
[2017-08-05] MEDS: FLUOCINONIDE 0.05% CREAM (15 GM TUBE) TP SCH ×2 (10:40→22:35)
[2017-08-05] MEDS: PRENATAL VITAMINS W/ FOLIC ACID TABLET (FP) PO SCH (10:41)
[2017-08-05] MEDS: QUEtiapine FUMARATE 50 MG TABLET PO SCH (10:41)
[2017-08-05] MEDS: hydrOXYzine PAMOATE 25 MG CAPSULE (FP) PO PRN ×2 (14:45→22:33)
[2017-08-05] MEDS: QUEtiapine FUMARATE 100 MG TABLET (FP) PO SCH (22:34)
[2017-08-05] MEDS: THIAMINE HCL 100 MG TABLET (FP) PO SCH (22:35)
[2017-08-06] MEDS ORDERED: hydrOXYzine PAMOATE 25 MG CAPSULE (FP) PO ONE (01:27)
[2017-08-06] MEDS ORDERED: METHADONE HCL 5 MG TABLET (FOR DETOX USE ONLY) PO SCH (06:00)
--- NOTE | 2017-08-06 09:18 | PN ---
[facility] Progress Note (SOAP) Subjective: ALERT,NO COMPLAINT Objective: 08/06/17 09:00 Vital Signs Temperature 97.9 F 08/06/17 06:11 Pulse Rate 79 08/06/17 06:11 Respiratory Rate 18 08/06/17 06:11 Blood Pressure 120/64 08/06/17 06:11 O2 Sat by Pulse Oximetry (%) DETOX COMPLETE.NO WITHDRAWAL SYMPTOM Assessment: 08/06/17 09:18 DETOX COMPLETED,NO WITHDRAWAL SYMPTOM Plan: DISCHARGE TODAY,FOLLOW UP WITH AFTER CARE PROGRAM ARRANGEMENT PATIENT WILL NEED BICILLIN 2.4 MILLION UNIT IM ON 08/10/17 AND ON 08/17/17 TO COMPLETE THE COURSE
--- NOTE | 2017-08-06 09:30 | DS ---
[facility] Detox Discharge Summary Admission Date: 08/01/17 Discharge Date: 08/06/17 - History Present History: Alcohol Dependence, Opioid Dependence Additional Comments: FOLLOW UP WITH AFTER CARE PROGRAM ARRANGEMENT PATIENT WILL NEED BICILLIN 2.4 MILLION UNITS IM ON 08/10/17 AND ON 08/17/17 TO COMPLETE THE COURSE/ PATIENT UNDERSTOOD THE NEED OF MEDICATIONS Pertinent Past History: HISTORY OF SYPHILIS NICOTINE DEPENDENCE CONTACT DERMATITIS - Physical Exam Results Vital Signs: Vital Signs Temperature 97.9 F 08/06/17 06:11 Pulse Rate 79 08/06/17 06:11 Respiratory Rate 18 08/06/17 06:11 Blood Pressure 120/64 08/06/17 06:11 O2 Sat by Pulse Oximetry (%) Pertinent Admission Physical Exam Findings: WITHDRAWAL SIGNS AND SYMPTOM - Treatment Hospital Course: Detox Protocol Followed, Detoxed Safely, Responded well, Discharged Condition Good, Rehab Referral Accepted Patient has Accepted a Rehab Referral to: [facility] - Medication Discharge Medications: Ambulatory Orders Quetiapine Fumarate [Seroquel -] 50 mg PO DAILY 08/01/17 Quetiapine Fumarate [Seroquel -] 50 mg PO DAILY #30 tablet 08/02/17 Quetiapine Fumarate [Seroquel -] 200 mg PO HS #30 tab 08/02/17 - Diagnosis (1) Opioid dependence with withdrawal Current Visit: Yes Status: Acute (2) Alcohol dependence with uncomplicated withdrawal Current Visit: Yes Status: Acute (3) Cocaine dependence, uncomplicated Current Visit: Yes Status: Acute (4) Nicotine dependence Current Visit: Yes Status: Acute Qualifiers: Nicotine product type: cigarettes Substance use status: in withdrawal Qualified Code(s): F17.213 - Nicotine dependence, cigarettes, with withdrawal (5) History of syphilis Current Visit: Yes Status: Resolved (6) Contact dermatitis Current Visit: No Status: Acute (7) Borderline personality disorder Current Visit: Yes Status: Chronic (8) MDD (major depressive disorder), recurrent episode, moderate Current Visit: Yes Status: Chronic (9) PTSD (post-traumatic stress disorder) Current Visit: Yes Status: Chronic - AMA Did Patient Leave Against Medical Advice: No
[2017-08-06 10:19] VITALS: BP 113/70; PULSE 76; TEMP 97.2
[2017-08-06] MEDS: FLUOCINONIDE 0.05% CREAM (15 GM TUBE) TP SCH (10:19)
[2017-08-06] MEDS: PRENATAL VITAMINS W/ FOLIC ACID TABLET (FP) PO SCH (10:19)
[2017-08-06] MEDS: QUEtiapine FUMARATE 50 MG TABLET PO SCH (10:20)
[2017-08-06] MEDS: hydrOXYzine PAMOATE 25 MG CAPSULE (FP) PO PRN (10:20)
== END 2017-08-06 12:05 | disposition home or self-care (01) | DRG 773 ==
LOC: YASAS 08:56 → Y6N 13:11
PROVIDERS: ADMIT Internal Medicine; ATTEND Internal Medicine
PROC: HZ2ZZZZ Detoxification Services for Substance Abuse Treatment (ICD-10-PCS; principal; 2017-08-01)
DX: F11.23 Opioid dependence with withdrawal (principal); F13.10 Sedative, hypnotic or anxiolytic abuse, uncomplicated; F10.230 Alcohol dependence with withdrawal, uncomplicated; F14.20 Cocaine dependence, uncomplicated; F17.213 Nicotine dependence, cigarettes, with withdrawal; F33.1 Major depressive disorder, recurrent, moderate; F43.10 Post-traumatic stress disorder, unspecified; F60.9 Personality disorder, unspecified; L25.9 Unspecified contact dermatitis, unspecified cause; Z86.19 Personal history of other infectious and parasitic diseases
CPT/HCPCS: 36415; 80053; 81003; 81015; 85027; 86593; 86780; 93005; 93010

== ENCOUNTER 2018-03-10 11:21 | Inpatient (IN) | payer OTHER ==
[2018-03-10 13:57] VITALS: BMI 21.6
--- NOTE | 2018-03-10 14:47 | HP ---
COWS - Scale Resting Pulse: 0= [place] 80 or Below Sweatin= Chills/Flushing Restless Observation: 1= Difficult to Sit Still Pupil Size: 1= Pupils >than Normal Bone or Joint Aches: 2= Severe Diffuse Aches Runny Nose/ Eye Tearin= Runny Nose/Eyes GI Upset > 30mins: 2= Nausea/Diarrhea Tremor Observation: 2= Slight Tremor Visible Yawning Observation: 1= 1-2x During Session Anxiety or Irritability: 2=Irritable/Anxious Goose Flesh Skin: 0=Smooth Skin COWS Score: 14 CIWA Score - CIWA Score Nausea/Vomitin Muscle Tremors: 2 Anxiety: 2 Agitation: 2 Paroxysmal Sweats: 1-Minimal Palms Moist Orientation: 0-Oriented Tacttile Disturbances: 1-Very Mild Itch/Numbness Auditory Disturbances: 1-Very Mild Visual Disturbances: 0-None Headache: 1-Very Mild CIWA-Ar Total Score: 12 Admission ROS BHS - HPI Chief Complaint: i need help to stop using heroin,xanax,alcohol,cocaine,withdrawal symptom, seeking detox,last detox 08/02 [facility] Allergies/Adverse Reactions: Allergies Allergy/AdvReac Type Severity Reaction Status Date / Time No Known Allergies Allergy Verified 03/09/18 10:58 History of Present Illness: this 32 yeras old female with heroin,xanax,cocaine and alcohol dependence, seeking detox,withdrawal symptom, syncope nicotine dependence bipolar disorder,anxiety,depression longest sobriety 8 months weight loss Exam Limitations: No Limitations - Ebola screening Have you traveled outside of the country in the last 21 days: No Have you had contact with anyone from an Ebola affected area: No Have you been sick,other than usual withdrawal symptoms: No Do you have a fever: No - Review of Systems Constitutional: Chills, Loss of Appetite, Malaise, Night Sweats, Changes in sleep, Weakness, Unintentional Wgt. Loss EENT: reports: Tearing, Nose Congestion Respiratory: reports: No Symptoms reported Cardiac: reports: No Symptoms Reported GI: reports: Diarrhea, Nausea, Vomiting, Abdominal cramping : reports: No Symptoms Reported Musculoskeletal: reports: Back Pain, Joint Pain, Muscle Pain, Joint Stiffness Integumentary: reports: Dryness Neuro: reports: Headache, Tremors Endocrine: reports: No Symptoms Reported Hematology: reports: No Symptoms Reported Psychiatric: reports: No Sypmtoms Reported, Judgement Intact, Mood/Affect Appropiate, Orientated x3, Depressed (bipolar disorder) Patient History - Patient Medical History Hx Anemia: No Hx Asthma: No Hx Chronic Obstructive Pulmonary Disease (COPD): No Hx Cancer: No Hx Cardiac Disorders: No Hx Congestive Heart Failure: No Hx Hypertension: No Hx Hypercholesterolemia: No Hx Pacemaker: No HX Cerebrovascular Accident: No Hx Seizures: No Hx Dementia: No Hx Diabetes: No Hx Gastrointestinal Disorders: No Hx Liver Disease: No Hx Genitourinary Disorders: No Hx Sexually Transmitted Disorders: Yes (syphilis) Hx Renal Disease (ESRD): No Hx Thyroid Disease: No Hx Human Immunodeficiency Virus (HIV): No (NEGATIVE HX last 08/02 ) Hx Hepatitis C: No Hx Depression: Yes Hx Suicide Attempt: Yes (pill overdose at age 18) Hx Bipolar Disorder: Yes (HX PTSD) Hx Schizophrenia: No Other Medical History: no suicidal,no homicidal - Patient Surgical History Past Surgical History: No Hx Neurologic Surgery: No Hx Cataract Extraction: No Hx Cardiac Surgery: No Hx Lung Surgery: No Hx Breast Surgery: No Hx Breast Biopsy: No Hx Abdominal Surgery: No Hx Appendectomy: No Hx Cholecystectomy: No Hx Genitourinary Surgery: No Hx Section: No Hx Orthopedic Surgery: No Hx Hysterectomy: No Anesthesia Reaction: No - PPD History Previous Implant?: Yes Implanted On Prior [facility] Admission?: Yes Date: 04/17/17 Results: 0 mm PPD to be Administered?: No - Reproductive History Patient is a Female of Child Bearing Age (11 -55 yrs old): Yes Last Menstrual Period: 02/15/17 Patient : No - Smoking Cessation Smoking history: Current every day smoker Have you smoked in the past 12 months: Yes Aproximately how many cigarettes per day: 10 Hx Chewing Tobacco Use: No Initiated information on smoking cessation: Yes 'Breaking Loose' booklet given: 03/10/18 - Substance & Tx. History Hx Alcohol Use: Yes Hx Substance Use: Yes Substance Use Type: Alcohol, Cocaine, Heroin, Tranquilizers Hx Substance Use Treatment: Yes ([facility] ) - Substances Abused Heroin Route: Injection Frequency: Daily Amount used: 7-8 bags Age of first use: 29 Date of Last Use: 03/10/18 Cocaine Route: Injection Frequency: Daily Amount used: $80-100 Age of first use: 25 Date of Last Use: 03/09/18 Alcohol-rum Route: Oral Frequency: Daily Amount used: 3 pts. Age of first use: 15 Date of Last Use: 03/09/18 Xanax Route: Oral Frequency: 1-3 times last 30 days Amount used: 3 mg. Age of first use: 27 Date of Last Use: 02/17/18 Family Disease History - Family Disease History Family Disease History: Other: Father (no contact, ALCOHOLIC), Mother (healthy, living), Brother (two living, healthy), Daughter (age seven - shared custody) Admission Physical Exam [facility] - Vital Signs Vital Signs: Vital Signs - 24 hr 03/10/18 13:48 Temperature 97.1 F L Pulse Rate 71 Respiratory 18 Rate Blood Pressure 106/57 L - Physical General Appearance: Yes: Moderate Distress, Tremorous, Irritable, Sweating, Anxious HEENTM: Yes: ZAIRE, Pharynx Normal, Tm's normal, Other (abrasions of face) Respiratory: Yes: Lungs Clear, Normal Breath Sounds, No Respiratory Distress Neck: Yes: Within Normal Limits, Supple, Trachea in good position Breast: Yes: Breast Exam Deferred Cardiology: Yes: Within Normal Limits, Regular Rhythm, Regular Rate, S1, S2 Abdominal: Yes: Within Normal Limits, Normal Bowel Sounds, Non Tender, Flat, Soft Genitourinary: Yes: Within Normal Limits Back: Yes: Muscle Spasm Musculoskeletal: Yes: full range of Motion, Back pain, Muscle Pain Extremities: Yes: Normal Range of Motion, Tremors Neurological: Yes: Within Normal Limits, seamer elastic band II-XII NML intact, Alert, Motor Strength 5/5, Normal Mood/Affect Integumentary: Yes: Dry, Track [place] Lymphatic: Yes: Within Normal Limits - Diagnostic (1) Opioid dependence with withdrawal Current Visit: No Status: Acute (2) Uncomplicated sedative, hypnotic or anxiolytic withdrawal Current Visit: Yes Status: Acute (3) Cannabis dependence Current Visit: No Status: Acute (4) Cocaine dependence, uncomplicated Current Visit: No Status: Acute (5) Nicotine dependence Current Visit: No Status: Acute Qualifiers: Nicotine product type: cigarettes Substance use status: in withdrawal Qualified Code(s): F17.213 - Nicotine dependence, cigarettes, with withdrawal (6) Insomnia Current Visit: No Status: Acute (7) Bipolar disorder Current Visit: Yes Status: Acute (8) Weight loss Current Visit: Yes Status: Acute (9) IV drug user Current Visit: Yes Status: Acute (10) Abrasion Current Visit: Yes Status: Acute (11) Cellulitis Current Visit: Yes Status: Acute Qualifiers: Site of cellulitis of extremity: upper extremity (12) History of syphilis Current Visit: No Status: Resolved Cleared for Admission S - Detox or Rehab [facility] Level of Care: Medically Managed Detox Regimen/Protocol: Methadone/Valium S Breath Alcohol Content Breath Alcohol Content: 0 Urine Pregancy Test - Result Urine Test Results: Negative- NO Line Present Urine Drug Screen - Results Drug Screen Negative: No Urine Drug Screen Results: SAE-Cocaine, OPI-Opiates, OXY-Oxycodone, FEN-Fentanyl
[2018-03-10] MEDS ORDERED: LOPERAMIDE HCL 2 MG CAPSULE PO PRN (15:27)
[2018-03-10] MEDS ORDERED: MAG HYDROX/AL HYDROX/SIMETH 30 ML UNIT-DOSE CUP PO PRN (15:27)
[2018-03-10] MEDS ORDERED: guaiFENesin/D-METHORPHAN HB 10 ML UNIT-DOSE CUPS PO PRN (15:27)
[2018-03-10] MEDS ORDERED: P-EPHED 60MG/TRIPROLIDI 2.5MG TABLET PO PRN (15:27)
[2018-03-10] MEDS ORDERED: MAGNESIUM CITRATE 300 ML BOTTLE PO PRN (15:27)
[2018-03-10] MEDS ORDERED: NICOTINE POLACRILEX 2 MG GUM BUC PRN (15:27)
[2018-03-10] MEDS ORDERED: MAGNESIUM HYDROX 2400MG/30ML ORAL SUSPENSION 30 ML CUP PO PRN (15:27)
[2018-03-10] MEDS ORDERED: diazePAM 5 MG TABLET PO ONE (15:45)
[2018-03-10] MEDS ORDERED: METHADONE HCL 10 MG TABLET (FOR DETOX USE ONLY) PO ONE ×2 (15:45→23:00)
[2018-03-10] MEDS: NICOTINE 21 MG/24 HOURS TOPICAL PATCH TD SCH (16:02)
[2018-03-10 19:18] LABS: URINE APPEARANCE SLCLOUDY; URINE BILIRUBIN NEGATIVE (<2.0 mg/dL); URINE COLOR YELLOW; URINE GLUCOSE (UA) NEGATIVE (NEGATIVE); URINE KETONE NEGATIVE (NEGATIVE); URINE LEUK ESTERASE 1+ (NEGATIVE); URINE NITRITE NEGATIVE (NEGATIVE); URINE PROTEIN NEGATIVE (NEGATIVE); URINE UROBILINOGEN NEGATIVE mg/dL (0.2-1.0)
[2018-03-10 19:37] LABS: EPI CELLS MODERATE /HPF (FEW); URINE MUCUS RARE
[2018-03-10] MEDS: cloNIDine HCL 0.1 MG TABLET PO SCH (22:14)
[2018-03-10] MEDS: diazePAM 5 MG TABLET PO SCH (22:14)
[2018-03-10] MEDS: THIAMINE HCL 100 MG TABLET (FP) PO SCH (22:14)
[2018-03-10] MEDS: MENTHOL/PHENOL 1 EACH UD MM PRN (22:16)
[2018-03-11] MEDS: diazePAM 5 MG TABLET PO SCH ×3 (05:22→22:36)
[2018-03-11] MEDS: CYCLOBENZAPRINE HCL 10 MG TABLET (FP) PO PRN ×3 (05:24→22:36)
[2018-03-11] MEDS: IBUPROFEN 400 MG TABLET (FP) PO PRN ×3 (05:24→22:36)
--- NOTE | 2018-03-11 07:46 | CONSULT ---
[facility] Psychiatric Consult - Data Date of interview: 03/11/18 Admission source: [facility] Identifying data: This is 32 yeras old female, , mother of one, living alone, unemployed with no financial support, with no psychiatric hospitalization history, with heroin,xanax,cocaine and alcohol dependence, reporting withdrawal symptoms and seeking detox. Substance Abuse History: - Smoking Cessation. Smoking history: Current every day smoker. Have you smoked in the past 12 months: Yes. Aproximately how many cigarettes per day: 10. Hx Chewing Tobacco Use: No. Initiated information on smoking cessation: Yes. 'Breaking Loose' booklet given: 03/10/18. - Substance & Tx. History. Hx Alcohol Use: Yes. Hx Substance Use: Yes. Substance Use Type : Alcohol, Cocaine, Heroin, Tranquilizers. Hx Substance Use Treatment: Yes ( [facility] ). - Substances Abused. Heroin. Route: Injection. Frequency: Daily. Amount used: 7-8 bags. Age of first use: 29. Date of Last Use: . Cocaine. Route: Injection. Frequency: Daily. Amount used: $80-100. Age of first use: 25. Date of Last Use: 03/09/18. Alcohol-rum. Route: Oral. Frequency: Daily. Amount used: 3 pts. Age of first use: 15. Date of Last Use: 03/09/18. Xanax. Route: Oral. Frequency: 1-3 times last 30 days. Amount used: 3 mg. Age of first use: 27. Date of Last Use: 02/17/18 Medical History: History of Cellulitis, Weight loss history, Syphilis history, Syncope history Psychiatric History: Patient reports history of depression and anxiety, as per computer there is a history of Bipolae Disorder, MDD, Boederline personality disorder. Patient denies psychiatric hospitalization history, suicidal, homicidal history, reports no medications taking prior to admission. As per computer there is a history of suicidal attempt by OD at age of 18 years ols, no suicidal history simnce then. Physical/Sexual Abuse/Trauma History: Unclear Additional Comment: Observation. Detox Unit Care Protocol. Mental Status Exam - Mental Status Exam Alert and Oriented to: Person Cognitive Function: Fair Patient Appearance: Unkempt Mood: Sad Affect: Flat Patient Behavior: Sedated Speech Pattern: Delayed Voice Loudness: Mildly Soft/Quiet Thought Process: Circumstantial Thought Disorder: Being Controlled Hallucinations: Denies Suicidal Ideation: Denies Homicidal Ideation: Denies Insight/Judgement: Fair Sleep: Difficulty falling asleep Appetite: Weight loss Muscle strength/Tone: Mild Hypotonicity Gait/Station: Shuffling Additional Comments: Observation. Detox Unit Care Protocol. Psychiatric Findings - Problem List ([place] 1, 2,3) (1) Bipolar disorder Current Visit: Yes Status: Acute (2) Cellulitis Current Visit: Yes Status: Acute Qualifiers: Site of cellulitis of extremity: upper extremity (3) Uncomplicated sedative, hypnotic or anxiolytic withdrawal Current Visit: Yes Status: Acute (4) Weight loss Current Visit: Yes Status: Acute (5) Alcohol dependence with uncomplicated withdrawal Current Visit: No Status: Acute (6) Cannabis dependence Current Visit: No Status: Acute (7) Cocaine dependence, uncomplicated Current Visit: No Status: Acute (8) Contact dermatitis Current Visit: No Status: Acute (9) Nicotine dependence Current Visit: No Status: Acute Qualifiers: Nicotine product type: cigarettes Substance use status: in withdrawal Qualified Code(s): F17.213 - Nicotine dependence, cigarettes, with withdrawal (10) Opioid dependence with withdrawal Current Visit: No Status: Acute (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 Detox Unit Care Protocol
[2018-03-11] MEDS ORDERED: METHADONE HCL 10 MG TABLET (FOR DETOX USE ONLY) PO SCH (10:00)
[2018-03-11] MEDS: PRENATAL VITAMINS W/ FOLIC ACID TABLET (FP) PO SCH (10:06)
[2018-03-11] MEDS: NICOTINE 21 MG/24 HOURS TOPICAL PATCH TD SCH (10:06)
[2018-03-11] MEDS: cloNIDine HCL 0.1 MG TABLET PO SCH ×2 (10:06→22:36)
--- NOTE | 2018-03-11 10:43 | PN ---
S CIWA - CIWA Score Nausea/Vomitin-No Nausea/No Vomiting Muscle Tremors: 4-Moderate,w/Arms Extend Anxiety: 3 Agitation: 4-Moderately Restless Paroxysmal Sweats: 3 Orientation: 0-Oriented Tacttile Disturbances: 0-None Auditory Disturbances: 0-None Visual Disturbances: 0-None Headache: 0-None Present CIWA-Ar Total Score: 14 BHS Progress Note (SOAP) Subjective: sweats shakes interrupted sleep agitation restless body aches Objective: 03/11/18 10:43 Vital Signs Temperature 98.2 F 03/11/18 09:57 Pulse Rate 59 L 03/11/18 09:57 Respiratory Rate 18 03/11/18 09:57 Blood Pressure 130/70 03/11/18 09:57 O2 Sat by Pulse Oximetry (%) Laboratory Tests 03/10/18 15:48 Urine Color Yellow Urine Appearance Slcloudy Urine pH 5.0 Ur Specific [place] 1.016 Urine Protein Negative Urine Glucose (UA) Negative Urine Ketones Negative Urine Blood Negative Urine Nitrite Negative Urine Bilirubin Negative Urine Urobilinogen Negative Ur Leukocyte Esterase 1+ H Urine WBC (Auto) 3 Urine RBC (Auto) 2 Ur Epithelial Cells Moderate Urine Mucus Rare rest of labs pending aaox3 ambulating no acute distress Assessment: 03/11/18 10:44 withdrawal sx Plan: continue detox increase fluids rest of labs pending
[2018-03-11 11:04] LABS: ALBUMIN 3.1 g/dl (3.4-5.0); ALK PHOS 110 U/L (45-117); ANION GAP 6 MMOL/L (8-16); BILIRUBIN,TOTAL 0.3 mg/dL (0.2-1); BLOOD UREA NITROGEN 12 mg/dL (7-18); CALCIUM 8.5 mg/dL (8.5-10.1); CHLORIDE 109 mmol/L (98-107); CO2 26 mmol/L (21-32); CREATININE 0.7 mg/dL (0.55-1.3); GLUCOSE,RANDOM 96 mg/dL (74-106); POTASSIUM 4.6 mmol/L (3.5-5.1); SGOT/AST 24 U/L (15-37); SGPT/ALT 90 U/L (13-61); SODIUM 141 mmol/L (136-145); TOT PROT 6.7 g/dl (6.4-8.2)
[2018-03-11 11:08] LABS: HEMOGLOBIN 11.5 GM/dL (10.7-15.3); MCH 26.8 pg (25.7-33.7); MEAN CELL VOLUME 83.5 fl (80-96); MEAN PLT VOLUME 7.9 fl (7.5-11.1); PLATELET COUNT 225 K/MM3 (134-434); RBC 4.31 M/mm3 (3.60-5.2); RDW 15.2 % (11.6-15.6); WHITE BLOOD COUNT 6.1 K/mm3 (4.0-10.0)
[2018-03-11 12:17] LABS: RPR REACTIVE 1:4 (NONREACTIVE)
[2018-03-11 12:18] LABS: TREPONEMA ANTIBODY PREVIOUSLY REACTIVE (NONREACTIVE)
--- NOTE | 2018-03-11 12:19 | EKG ---
Test Reason : Blood Pressure : / mmHG Vent. Rate : 073 BPM Atrial Rate : 073 BPM P-R Int : 136 ms QRS Dur : 088 ms QT Int : 370 ms P-R-T Axes : 045 070 043 degrees QTc Int : 407 ms NORMAL SINUS RHYTHM WITH SINUS ARRHYTHMIA NORMAL ECG WHEN COMPARED WITH ECG OF 01-AUG-2017 13:06, NO SIGNIFICANT CHANGE WAS FOUND Confirmed by CARMEN MARINELLI MD ([id number]) on 03/11/2018 12:19:09 PM Referred By: Confirmed By:CARMEN MARINELLI MD
--- NOTE | 2018-03-11 13:41 | PN ---
[facility] Progress Note Note: Laboratory Tests 03/10/18 03/11/18 03/11/18 15:48 07:00 07:00 WBC 6.1 RBC 4.31 Hgb 11.5 Hct 36.0 MCV 83.5 MCH 26.8 MCHC 32.0 RDW 15.2 D Plt Count 225 D MPV 7.9 Sodium Potassium Chloride Carbon Dioxide Anion Gap BUN Creatinine Creat Clearance w eGFR Random Glucose Calcium Total Bilirubin AST ALT Alkaline Phosphatase Total Protein Albumin Urine Color Yellow Urine Appearance Slcloudy Urine pH 5.0 Ur Specific [place] 1.016 Urine Protein Negative Urine Glucose (UA) Negative Urine Ketones Negative Urine Blood Negative Urine Nitrite Negative Urine Bilirubin Negative Urine Urobilinogen Negative Ur Leukocyte Esterase 1+ H Urine WBC (Auto) 3 Urine RBC (Auto) 2 Ur Epithelial Cells Moderate Urine Mucus Rare RPR Titer T.pallidum Ab ([facility]) HIV 1&2 Antibody Screen Negative HIV P24 Antigen Negative 03/11/18 03/11/18 07:00 07:00 WBC RBC Hgb Hct MCV MCH MCHC RDW Plt Count MPV Sodium 141 Potassium 4.6 Chloride 109 H Carbon Dioxide 26 Anion Gap 6 L BUN 12 Creatinine 0.7 Creat Clearance w eGFR > 60 Random Glucose 96 Calcium 8.5 Total Bilirubin 0.3 AST 24 ALT 90 H Alkaline Phosphatase 110 Total Protein 6.7 Albumin 3.1 L Urine Color Urine Appearance Urine pH Ur Specific [place] Urine Protein Urine Glucose (UA) Urine Ketones Urine Blood Urine Nitrite Urine Bilirubin Urine Urobilinogen Ur Leukocyte Esterase Urine WBC (Auto) Urine RBC (Auto) Ur Epithelial Cells Urine Mucus RPR Titer Reactive 1:4 H D T.pallidum Ab ([facility]) Previously reactive HIV 1&2 Antibody Screen HIV P24 Antigen pt states she never followed up for more treatment after receiving first benzathine penicillin injection here on her last visit in july. lab indicates a 1:4 previously reactive result. Consulted with pt she will be receiving a first dose today and will require to follow up with dept of health or her pcp in two weeks. Pt in agreement.
[2018-03-11] MEDS ORDERED: PENICILLIN G BENZATHINE 2,400,000 UNIT/4 ML PFS IM ONE (14:00)
[2018-03-11] MEDS: ACETAMINOPHEN 325 MG TABLET (FP) PO PRN ×2 (16:53→22:37)
--- NOTE | 2018-03-11 17:22 | PN ---
S Progress Note Note: Vital Signs Temperature 99.3 F 03/11/18 13:45 Pulse Rate 81 03/11/18 13:45 Respiratory Rate 18 03/11/18 13:45 Blood Pressure 121/82 03/11/18 13:45 O2 Sat by Pulse Oximetry (%) Patient refused scheduled Benzathine PNC injection today. Patient reports she feels weak and wishes to receive the medication in the AM. order changed for tomorrow AM.
[2018-03-11] MEDS: THIAMINE HCL 100 MG TABLET (FP) PO SCH (22:36)
[2018-03-12] MEDS: diazePAM 5 MG TABLET PO PRN ×3 (01:18→16:47)
[2018-03-12] MEDS: IBUPROFEN 400 MG TABLET (FP) PO PRN ×2 (03:27→09:46)
[2018-03-12] MEDS: MELATONIN 5 MG TABLETS PO PRN ×2 (03:28→22:41)
[2018-03-12] MEDS: ACETAMINOPHEN 325 MG TABLET (FP) PO PRN (03:47)
[2018-03-12] MEDS: CYCLOBENZAPRINE HCL 10 MG TABLET (FP) PO PRN (03:47)
[2018-03-12] MEDS: PRENATAL VITAMINS W/ FOLIC ACID TABLET (FP) PO SCH (09:45)
[2018-03-12] MEDS: METHADONE HCL 5 MG TABLET (FOR DETOX USE ONLY) PO SCH (09:45)
[2018-03-12] MEDS: cloNIDine HCL 0.1 MG TABLET PO SCH ×2 (09:50→22:39)
[2018-03-12] MEDS: NICOTINE 21 MG/24 HOURS TOPICAL PATCH TD SCH (09:50)
[2018-03-12] MEDS: diazePAM 5 MG TABLET PO SCH ×2 (09:53→22:39)
[2018-03-12] MEDS ORDERED: PENICILLIN G BENZATHINE 2,400,000 UNIT/4 ML PFS IM ONE (10:00)
--- NOTE | 2018-03-12 10:47 | PN ---
S CIWA - CIWA Score Nausea/Vomitin-No Nausea/No Vomiting Muscle Tremors: 4-Moderate,w/Arms Extend Anxiety: 3 Agitation: 4-Moderately Restless Paroxysmal Sweats: 3 Orientation: 0-Oriented Tacttile Disturbances: 0-None Auditory Disturbances: 0-None Visual Disturbances: 0-None Headache: 0-None Present CIWA-Ar Total Score: 14 BHS COWS - Scale Resting Pulse: 0= [place] 80 or Below Sweatin=Flushed/Facial Moisture Restless Observation: 1= Difficult to Sit Still Pupil Size: 0= Normal to Room Light Bone or Joint Aches: 2= Severe Diffuse Aches Runny Nose/ Eye Tearin= Runny Nose/Eyes GI Upset > 30mins: 0= None Tremor Observation of Outstretched Hands: 2= Slight Tremor Visible Yawning Observation: 2= >3x During Session Anxiety or Irritability: 2=Irritable/Anxious Goose Flesh Skin: 0=Smooth Skin COWS Score: 13 S Progress Note (SOAP) Subjective: lower back pain sweats irritable agitation achy muscles Objective: 03/12/18 10:46 Vital Signs Temperature 97.5 F L 03/12/18 09:36 Pulse Rate 73 03/12/18 09:36 Respiratory Rate 17 03/12/18 09:36 Blood Pressure 129/52 L 03/12/18 09:36 O2 Sat by Pulse Oximetry (%) Laboratory Tests 03/10/18 03/11/18 03/11/18 15:48 07:00 07:00 WBC 6.1 RBC 4.31 Hgb 11.5 Hct 36.0 MCV 83.5 MCH 26.8 MCHC 32.0 RDW 15.2 D Plt Count 225 D MPV 7.9 Sodium Potassium Chloride Carbon Dioxide Anion Gap BUN Creatinine Creat Clearance w eGFR Random Glucose Calcium Total Bilirubin AST ALT Alkaline Phosphatase Total Protein Albumin Urine Color Yellow Urine Appearance Slcloudy Urine pH 5.0 Ur Specific [place] 1.016 Urine Protein Negative Urine Glucose (UA) Negative Urine Ketones Negative Urine Blood Negative Urine Nitrite Negative Urine Bilirubin Negative Urine Urobilinogen Negative Ur Leukocyte Esterase 1+ H Urine WBC (Auto) 3 Urine RBC (Auto) 2 Ur Epithelial Cells Moderate Urine Mucus Rare RPR Titer T.pallidum Ab ([facility]) HIV 1&2 Antibody Screen Negative HIV P24 Antigen Negative 03/11/18 03/11/18 07:00 07:00 WBC RBC Hgb Hct MCV MCH MCHC RDW Plt Count MPV Sodium 141 Potassium 4.6 Chloride 109 H Carbon Dioxide 26 Anion Gap 6 L BUN 12 Creatinine 0.7 Creat Clearance w eGFR > 60 Random Glucose 96 Calcium 8.5 Total Bilirubin 0.3 AST 24 ALT 90 H Alkaline Phosphatase 110 Total Protein 6.7 Albumin 3.1 L Urine Color Urine Appearance Urine pH Ur Specific [place] Urine Protein Urine Glucose (UA) Urine Ketones Urine Blood Urine Nitrite Urine Bilirubin Urine Urobilinogen Ur Leukocyte Esterase Urine WBC (Auto) Urine RBC (Auto) Ur Epithelial Cells Urine Mucus RPR Titer Reactive 1:4 H D T.pallidum Ab ([facility]) Previously reactive HIV 1&2 Antibody Screen HIV P24 Antigen aaox3 ambulating no acute distress pt agreed to take scheduled injection ordered today. Assessment: 03/12/18 10:46 withdrawal sx Plan: continue detox increase fluids lidocaine patch motrin 600 prn
[2018-03-12] MEDS: LIDOCAINE 5% TOPICAL PATCH TP SCH (12:00)
--- NOTE | 2018-03-12 14:13 | PN ---
S Progress Note Note: spoke with pt regarding the need for her to receive abx injection for treatment. pt insisted she did not want to receive the injection and will continue to refuse. Pt states she will f/u with her pcp when her detox is completed. pt signed refusal form with RN on duty.
[2018-03-12] MEDS: IBUPROFEN 600 MG TABLET (FP) PO PRN (16:47)
[2018-03-12] MEDS ORDERED: LIDOCAINE PATCH REMOVAL MC SCH (22:00)
[2018-03-12] MEDS: THIAMINE HCL 100 MG TABLET (FP) PO SCH (22:39)
[2018-03-13] MEDS: CYCLOBENZAPRINE HCL 10 MG TABLET (FP) PO PRN ×2 (00:51→15:34)
[2018-03-13] MEDS: IBUPROFEN 600 MG TABLET (FP) PO PRN ×2 (00:51→15:33)
[2018-03-13] MEDS: diazePAM 5 MG TABLET PO PRN (04:19)
[2018-03-13] MEDS: diazePAM 5 MG TABLET PO SCH (10:05)
[2018-03-13] MEDS: METHADONE HCL 5 MG TABLET (FOR DETOX USE ONLY) PO SCH (10:05)
[2018-03-13] MEDS: PRENATAL VITAMINS W/ FOLIC ACID TABLET (FP) PO SCH (10:05)
[2018-03-13] MEDS: cloNIDine HCL 0.1 MG TABLET PO SCH (10:05)
[2018-03-13] MEDS: LIDOCAINE 5% TOPICAL PATCH TP SCH (10:06)
[2018-03-13] MEDS: MENTHOL/PHENOL 1 EACH UD MM PRN (10:07)
[2018-03-13] MEDS: NICOTINE 21 MG/24 HOURS TOPICAL PATCH TD SCH (11:08)
[2018-03-13 14:08] VITALS: TEMP 98.1
--- NOTE | 2018-03-13 15:17 | PN ---
S Progress Note (SOAP) Subjective: Wants to leave in am at Lunch time. States feels comfortable and less anxious. Objective: A&O x 3. Minimal tremors of hands. Gait steady. Vital Signs 03/13/18 03/13/18 09:31 14:07 Temperature 96.8 F L 98.1 F Pulse Rate 75 77 Respiratory 18 16 Rate Blood Pressure 121/79 105/63 Laboratory Last Values WBC 6.1 K/mm3 (4.0-10.0) 03/11/18 07:00 RBC 4.31 M/mm3 (3.60-5.2) 03/11/18 07:00 Hgb 11.5 GM/dL (10.7-15.3) 03/11/18 07:00 Hct 36.0 % (32.4-45.2) 03/11/18 07:00 MCV 83.5 fl (80-96) 03/11/18 07:00 MCH 26.8 pg (25.7-33.7) 03/11/18 07:00 MCHC 32.0 g/dl (32.0-36.0) 03/11/18 07:00 RDW 15.2 % (11.6-15.6) D 03/11/18 07:00 Plt Count 225 K/MM3 (134-434) D 03/11/18 07:00 MPV 7.9 fl (7.5-11.1) 03/11/18 07:00 Sodium 141 mmol/L (136-145) 03/11/18 07:00 Potassium 4.6 mmol/L (3.5-5.1) 03/11/18 07:00 Chloride 109 mmol/L (98-107) H 03/11/18 07:00 Carbon Dioxide 26 mmol/L (21-32) 03/11/18 07:00 Anion Gap 6 MMOL/L (8-16) L 03/11/18 07:00 BUN 12 mg/dL (7-18) 03/11/18 07:00 Creatinine 0.7 mg/dL (0.55-1.3) 03/11/18 07:00 Creat Clearance w eGFR > 60 (>60) 03/11/18 07:00 Random Glucose 96 mg/dL (74-106) 03/11/18 07:00 Calcium 8.5 mg/dL (8.5-10.1) 03/11/18 07:00 Total Bilirubin 0.3 mg/dL (0.2-1) 03/11/18 07:00 AST 24 U/L (15-37) 03/11/18 07:00 ALT 90 U/L (13-61) H 03/11/18 07:00 Alkaline Phosphatase 110 U/L (45-117) 03/11/18 07:00 Total Protein 6.7 g/dl (6.4-8.2) 03/11/18 07:00 Albumin 3.1 g/dl (3.4-5.0) L 03/11/18 07:00 Urine Color Yellow 03/10/18 15:48 Urine Appearance Slcloudy 03/10/18 15:48 Urine pH 5.0 (5.0-8.0) 03/10/18 15:48 Ur Specific [place] 1.016 (1.010-1.035) 03/10/18 15:48 Urine Protein Negative (NEGATIVE) 03/10/18 15:48 Urine Glucose (UA) Negative (NEGATIVE) 03/10/18 15:48 Urine Ketones Negative (NEGATIVE) 03/10/18 15:48 Urine Blood Negative (NEGATIVE) 03/10/18 15:48 Urine Nitrite Negative (NEGATIVE) 03/10/18 15:48 Urine Bilirubin Negative (<2.0 mg/dL) 03/10/18 15:48 Urine Urobilinogen Negative mg/dL (0.2-1.0) 03/10/18 15:48 Ur Leukocyte Esterase 1+ (NEGATIVE) H 03/10/18 15:48 Urine WBC (Auto) 3 /hpf (3-5) 03/10/18 15:48 Urine RBC (Auto) 2 /hpf (0-3) 03/10/18 15:48 Ur Epithelial Cells Moderate /HPF (FEW) 03/10/18 15:48 Urine Mucus Rare 03/10/18 15:48 RPR Titer Reactive 1:4 (NONREACTIVE) H D 03/11/18 07:00 T.pallidum Ab ([facility]) Previously reactive (NONREACTIVE) 03/11/18 07:00 HIV 1&2 Antibody Screen Negative 03/11/18 07:00 HIV P24 Antigen Negative 03/11/18 07:00 Labs reviewed. Patient indicated a hx of syphilis on admission and states was treated. Assessment: Withdrawal symptoms. Positive RPR. Plan: Continue detox. Will change am methadone dose from 10 mg to 5 mg. Encourage repeat RPR w/ PCP to see if levels elevate.
[2018-03-13 17:44] VITALS: BP 112/68; PULSE 82
--- NOTE | 2018-03-13 17:49 | PN ---
[facility] Progress Note Note: patient did not want to complete treatment,all attempts to convince patient to stay by nurse,counselor with no avail,patient did not want to wait, signed release ama,patient did not want to wait,to er if any medical emergency
--- NOTE | 2018-03-13 17:55 | DS ---
[facility] Detox Discharge Summary Admission Date: 03/10/18 Discharge Date: 03/13/18 - History Present History: Cannabis Dependence, Cocaine Dependence, Opioid Dependence, Sedative Dependence Additional Comments: patient left ama Pertinent Past History: nicotine dependence bipolar disorder iv drug user insomnia history syphilis - Physical Exam Results Vital Signs: Vital Signs Temperature 98.1 F 03/13/18 17:43 Pulse Rate 82 03/13/18 17:43 Respiratory Rate 18 03/13/18 17:43 Blood Pressure 112/68 03/13/18 17:43 O2 Sat by Pulse Oximetry (%) Pertinent Admission Physical Exam Findings: withdrawal signs and symptom Laboratory Last Values WBC 6.1 K/mm3 (4.0-10.0) 03/11/18 07:00 RBC 4.31 M/mm3 (3.60-5.2) 03/11/18 07:00 Hgb 11.5 GM/dL (10.7-15.3) 03/11/18 07:00 Hct 36.0 % (32.4-45.2) 03/11/18 07:00 MCV 83.5 fl (80-96) 03/11/18 07:00 MCH 26.8 pg (25.7-33.7) 03/11/18 07:00 MCHC 32.0 g/dl (32.0-36.0) 03/11/18 07:00 RDW 15.2 % (11.6-15.6) D 03/11/18 07:00 Plt Count 225 K/MM3 (134-434) D 03/11/18 07:00 MPV 7.9 fl (7.5-11.1) 03/11/18 07:00 Sodium 141 mmol/L (136-145) 03/11/18 07:00 Potassium 4.6 mmol/L (3.5-5.1) 03/11/18 07:00 Chloride 109 mmol/L (98-107) H 03/11/18 07:00 Carbon Dioxide 26 mmol/L (21-32) 03/11/18 07:00 Anion Gap 6 MMOL/L (8-16) L 03/11/18 07:00 BUN 12 mg/dL (7-18) 03/11/18 07:00 Creatinine 0.7 mg/dL (0.55-1.3) 03/11/18 07:00 Creat Clearance w eGFR > 60 (>60) 03/11/18 07:00 Random Glucose 96 mg/dL (74-106) 03/11/18 07:00 Calcium 8.5 mg/dL (8.5-10.1) 03/11/18 07:00 Total Bilirubin 0.3 mg/dL (0.2-1) 03/11/18 07:00 AST 24 U/L (15-37) 03/11/18 07:00 ALT 90 U/L (13-61) H 03/11/18 07:00 Alkaline Phosphatase 110 U/L (45-117) 03/11/18 07:00 Total Protein 6.7 g/dl (6.4-8.2) 03/11/18 07:00 Albumin 3.1 g/dl (3.4-5.0) L 03/11/18 07:00 Urine Color Yellow 03/10/18 15:48 Urine Appearance Slcloudy 03/10/18 15:48 Urine pH 5.0 (5.0-8.0) 03/10/18 15:48 Ur Specific [place] 1.016 (1.010-1.035) 03/10/18 15:48 Urine Protein Negative (NEGATIVE) 03/10/18 15:48 Urine Glucose (UA) Negative (NEGATIVE) 03/10/18 15:48 Urine Ketones Negative (NEGATIVE) 03/10/18 15:48 Urine Blood Negative (NEGATIVE) 03/10/18 15:48 Urine Nitrite Negative (NEGATIVE) 03/10/18 15:48 Urine Bilirubin Negative (<2.0 mg/dL) 03/10/18 15:48 Urine Urobilinogen Negative mg/dL (0.2-1.0) 03/10/18 15:48 Ur Leukocyte Esterase 1+ (NEGATIVE) H 03/10/18 15:48 Urine WBC (Auto) 3 /hpf (3-5) 03/10/18 15:48 Urine RBC (Auto) 2 /hpf (0-3) 03/10/18 15:48 Ur Epithelial Cells Moderate /HPF (FEW) 03/10/18 15:48 Urine Mucus Rare 03/10/18 15:48 RPR Titer Reactive 1:4 (NONREACTIVE) H D 03/11/18 07:00 T.pallidum Ab (MHA) Previously reactive (NONREACTIVE) 03/11/18 07:00 HIV 1&2 Antibody Screen Negative 03/11/18 07:00 HIV P24 Antigen Negative 03/11/18 07:00 history of syphilis treated - Medication Discharge Medications: Ambulatory Orders NK [No Known Home Medication] 03/09/18 - Diagnosis (1) Opioid dependence with withdrawal Current Visit: No Status: Acute (2) Uncomplicated sedative, hypnotic or anxiolytic withdrawal Current Visit: Yes Status: Acute (3) Cannabis dependence Current Visit: No Status: Acute (4) Cocaine dependence, uncomplicated Current Visit: No Status: Acute (5) Nicotine dependence Current Visit: No Status: Acute Qualifiers: Nicotine product type: cigarettes Substance use status: in withdrawal Qualified Code(s): F17.213 - Nicotine dependence, cigarettes, with withdrawal (6) Insomnia Current Visit: No Status: Acute (7) Bipolar disorder Current Visit: Yes Status: Acute (8) Weight loss Current Visit: Yes Status: Acute (9) IV drug user Current Visit: Yes Status: Acute (10) Abrasion Current Visit: Yes Status: Acute (11) Cellulitis Current Visit: Yes Status: Acute Qualifiers: Site of cellulitis of extremity: upper extremity (12) History of syphilis Current Visit: No Status: Suspected - AMA Did Patient Leave Against Medical Advice: Yes
[2018-03-14] MEDS ORDERED: METHADONE HCL 5 MG TABLET (FOR DETOX USE ONLY) PO SCH (06:00)
[2018-03-14] MEDS ORDERED: METHADONE HCL 10 MG TABLET (FOR DETOX USE ONLY) PO SCH (10:00)
[2018-03-14] MEDS ORDERED: diazePAM 5 MG TABLET PO SCH (10:00)
[2018-03-15] MEDS ORDERED: METHADONE HCL 5 MG TABLET (FOR DETOX USE ONLY) PO SCH (06:00)
== END 2018-03-13 18:05 | disposition left against medical advice (07) | DRG 770 ==
LOC: YASAS 11:21 → Y6N 15:06
PROC: HZ2ZZZZ Detoxification Services for Substance Abuse Treatment (ICD-10-PCS; principal; 2018-03-10)
DX: F11.23 Opioid dependence with withdrawal (principal); F13.230 Sedative, hypnotic or anxiolytic dependence with withdrawal, uncomplicated; F14.20 Cocaine dependence, uncomplicated; F12.20 Cannabis dependence, uncomplicated; F17.213 Nicotine dependence, cigarettes, with withdrawal; F43.10 Post-traumatic stress disorder, unspecified; F31.9 Bipolar disorder, unspecified; F33.1 Major depressive disorder, recurrent, moderate; F19.24 Other psychoactive substance dependence with psychoactive substance-induced mood disorder; G47.00 Insomnia, unspecified; L25.9 Unspecified contact dermatitis, unspecified cause; L70.0 Acne vulgaris; L03.119 Cellulitis of unspecified part of limb; R63.4 Abnormal weight loss; Z68.21 Body mass index [BMI] 21.0-21.9, adult; Z86.19 Personal history of other infectious and parasitic diseases; Z91.5 Personal history of self-harm; T14.8XXA Other injury of unspecified body region, initial encounter; X58.XXXA Exposure to other specified factors, initial encounter; Y93.9 Activity, unspecified; Y92.9 Unspecified place or not applicable; Y99.9 Unspecified external cause status
CPT/HCPCS: 36415; 80053; 81003; 81015; 85027; 86593; 86780; 87389; 93005; 93010; J0735